=== PATIENT | female | born 1985 | race Caucasian/White ===

== ENCOUNTER 2016-07-08 16:35 | Emergency (ER) | payer SELFPAY ==
[~2016-07-08] VITALS: Ht 157.5 cm; Wt 117.2 kg
[~2016-07-08 16:35] MED LIST: ALBU8.5H INH; AZIT500T2 PO; CIPR-212 PO; OMEP20CA10 PO; TRAM50TA53 PO
[2016-07-08 16:36] VITALS: Ht 157.5 cm; Wt 117.2 kg
--- OUTSIDE RECORDS SUMMARY | 2016-07-08 16:45 | XMS REPORT ---
Author Author GENERATED, SYSTEM Organization Unknown Address Unknown Phone Unavailable Care Team Providers Care Director Of Donor Relations Name Role Phone UNASSIGNED DOCTOR , DOCTOR PP [phone] Reason For Visit Chief Complaint ABDOMINAL PAIN Social History Functional Status Vital Signs Results Chemistry from 08/15/2015 2:21 PMSODIUM 140 MMOL/L (136-145 MMOL/L) POTASSIUM 4.2 MMOL/L (3.5-5.1 MMOL/L) CHLORIDE 103 MMOL/L (98-107 MMOL/L) TCO2 30.6 MMOL/L (21.0-32.0 MMOL/L) *ANION GAP 6.4 MMOL/L L (8.0-16.0 MMOL/L) BUN 15 MG/DL (7-18 MG/DL) CREATININE 0.91 MG/DL (0.55-1.02 MG/DL) *BUN/CREATININE RATIO 16.5 (9.1-17.0 ) GLUCOSE 90 MG/DL (65-99 MG/DL) *GFR EST NON AFR FAROESE 85 ML/MIN *GFRA EST AFR AMER >90 ML/MIN CALCIUM 8.9 MG/DL (8.5-10.1 MG/DL) BILIRUBIN TOTAL 0.60 MG/DL (0.20-1.00 MG/DL) TOTAL PROTEIN 7.8 GM/DL (6.4-8.2 GM/DL) ALBUMIN 3.5 GM/DL (3.4-5.0 GM/DL) *GLOBULIN 4.3 GM/DL H (2.3-3.5 GM/DL) *A/G RATIO 0.8 MG/DL L (1.5-2.2 MG/DL) ALK PHOS 54 U/L (46-116 U/L) ALT (SGPT) 24 U/L (16-63 U/L) AST (SGOT) 16 U/L (15-37 U/L) LIPASE 106 U/L (73-393 U/L) TEST NEGATIVE (NEGATIVE ) Hematology from 08/15/2015 2:21 PMWBC 12.0 X10e3/UL H (3.6-11.2 X10e3/UL) RBC 4.48 X10e6/UL (3.63-4.92 X10e6/UL) HEMOGLOBIN 13.2 G/DL (11.0-14.3 G/DL) HEMATOCRIT 39.9 % (31.2-41.9 %) *MCV 89.2 FL (79.0-98.0 FL) *MCH 29.4 PG (27.0-33.0 PG) *MCHC 33.0 G/DL (32.0-36.0 G/DL) *RDW 14.2 % (12.3-17.0 %) *RDWSD 44.6 (37.1-47.8 ) PLATELET 273 X10e3/UL (159-386 X10e3/UL) *MPV 8.5 FL (7.4-10.4 FL) AUTOMATED DIFF PERFORMED SEGS 63.9 % *LYMPHOCYTES 30.1 % *MONOCYTES 4.8 % *EOSINOPHILS 0.6 % *BASOPHILS 0.6 % *ABSOLUTE NEUTROPHILS 7.70 X10e3/UL (1.80-7.80 X10e3/UL) *ABSOLUTE LYMPHOCYTES 3.60 X10e3/UL H (1.00-3.00 X10e3/UL) *ABSOLUTE MONOCYTES 0.60 X10e3/UL (0.30-1.00 X10e3/UL) *ABSOLUTE EOSINOPHILS 0.10 X10e3/UL (0.00-0.50 X10e3/UL) *ABSOLUTE BASOPHILS 0.10 X10e3/UL (0.00-0.20 X10e3/UL) Urinalysis from 08/15/2015 2:25 PM*URINE COLOR YELLOW (STRAW/YELL/DK YELL ) *URINE APPEARANCE CLOUDY A (CLEAR ) URINE PH 8.0 (5.0-8.0 ) URINE SPECIFIC GRAVITY 1.015 (<=1.005->=1.030 ) *URINE GLUCOSE NEGATIVE MG/DL (NEGATIVE MG/DL) *URINE BILIRUBIN NEGATIVE (NEGATIVE ) *URINE KETONES NEGATIVE MG/DL (NEGATIVE MG/DL) *URINE BLOOD MODERATE A (NEGATIVE ) *URINE PROTEIN NEGATIVE MG/DL (NEGATIVE MG/DL) *URINE UROBILINOGEN 0.2 EU/DL (0.2-1.0 EU/DL) *URINE NITRITES NEGATIVE (NEGATIVE ) *URINE LEUKOCYTES NEGATIVE (NEGATIVE ) *MICROSCOPIC EXAM PERFORMED PERFORMED *WBC URINE 0-1 /HPF (0-5 /HPF) *RBC URINE 5-10 /HPF A (0-1 /HPF) *SQUAMOUS EP. CELLS MANY /LPF A (NEG-FEW /LPF) *MUCOUS THREADS FEW /LPF A (NEGATIVE /LPF) *BACTERIA FEW /HPF A (NEGATIVE /HPF) Problems Encounter Diagnosis No relevant problems exist. Encounters Encounter Diagnosis No relevant problems exist. Plan of Care Procedures * Completed Procedure Code: 00.00 Procedure Name: not valued, on 08/06/2014 12: 00 AM Immunizations No immunizations administered or ordered. Hospital Course Hospital Discharge Instructions Allergies, Adverse Reactions, Alerts * Latex Allergy has not been assessed. * IV Contrast Allergy has not been assessed. Medication Medication reconciliation has not been performed.
--- OUTSIDE RECORDS SUMMARY | 2016-07-08 16:45 | XMS REPORT | Continuity of Care Document ---
Author Author [facility] Organization [facility] Address Unknown Phone Unavailable Support Name Relationship Address Phone FREDDIE BATRES Veronica DO Caregiver [address] [place] [address] Unavailable KIMBERLY SANCHEZ Next Of Kin [address] [place] [address] Insurance Providers Guarantor Evelyn Milan Address [address] [place] [address] Email LEFT W/O FINISHING REF 15 Payer Self Pay Subscriber's Name Berna Milana Nacho Relationship 18 Self Advance Directives Directive Response Recorded Date/Time Advanced Directives Type None 06/26/16 5:14pm Chief Complaint and Reason for Visit Chief Complaint Headache Reason for Visit Contusion of face Problems Active Problems Medical Problem Onset Date Status Knee contusion Unknown Acute Knee sprain Unknown Acute Past Problems Medical Problem Onset Date Abdominal pain Unknown Contusion of abdominal wall, initial encounter Unknown Contusion of face Unknown Drug-seeking behavior Unknown Knee sprain Unknown Left foot pain Unknown Medications Current Home Medications Medication Dose Units Route Directions Days Qty Instructions Start Date Albuterol Sulfate (Proair Hfa 90 Mcg/Actuation) 8.5 Gm Hfa.aer.ad 1 Puff Inhalation Every 4 Hours as needed for Shortness Of Air 06/26/16 Azithromycin (Zithromax Tri-Seamus) 500 Mg Tablet 1 Tab Oral Daily 3 Days 06/26/16 Ciprofloxacin Hcl (Cipro) 500 Mg Tablet 500 Mg Oral Every 12 Hours 06/26/16 Omeprazole 20 Mg Capsule.dr 20 Mg Oral Before Breakfast 06/26/16 Tramadol Hcl (Ultram) 50 Mg Tablet 50 Mg Oral Every 4 Hours for Pain 3 Days 18 Tablet Take 1 tablet, by mouth, every 4 hours. 06/26/16 Past Home Medications Medication Directions Ordered Status Ibuprofen 800 Mg Tablet, 800 Mg Oral Every 8 Hours as needed for Pain Discontinued Social History Social History Problem Response Recorded Date/Time Onset Date Status Hx Substance Use No 06/26/2016 5:24pm Not Applicable Not Applicable Hx Alcohol Use No 06/26/2016 5:24pm Not Applicable Not Applicable Tobacco Usage smoke 11/02/2015 1:40am Not Applicable Not Applicable Query Response Start Date Stop Date Smoking Status Never smoker Hospital Discharge Instructions No hospital discharge instructions. Plan of Care Discharge Date 06/26/16 7:19pm Disposition 01 DISCHARGED HOME, SELF-CARE Condition at Discharge Improved Instructions/Education Provided Contusion in Adults (ED) Prescriptions See Medication Section Referrals [facility] Order Date: 2 Days Care Plan and Goals Physician Care Plan Problem: Contusion, CHI Goal: Follow up with primary care provider Instructions: Take medications and follow care plan as discussed/written Functional Status No functional status results. Allergies, Adverse Reactions, Alerts Allergen Type Severity Reaction Status Last Updated Erythromycin base Allergy Unknown VOMITING Active 05/31/16 Ketorolac Adverse Reaction Unknown RASH Active 05/31/16 Immunizations Query Response on File Recorded Date/Time Influenza Vaccine Hx NONE 06/26/16 5:24pm Tdap Vaccine Hx UNKNOWN - SKIN INTACT 05/31/16 10:39am Vital Signs Acute Vital Signs Vital Response Date/Time Temperature (Fahrenheit) 98.5 deg F (96.8 - 99.1) 06/26/2016 7:19pm Temperature (Calculated Celsius) 36.86125 degrees C (36.0 - 37.3) 06/26/2016 7:19pm Pulse Rate (adult) 84 bpm (60 - 100) 06/26/2016 7:19pm Respiratory Rate 16 breaths/min (10 - 20) 06/26/2016 7:19pm O2 Sat by Pulse Oximetry 98 % (90 - 100) 06/26/2016 7:19pm Oxygen Delivery Method Room Air 05/31/2016 12:32pm Blood Pressure 130/74 mm Hg 06/26/2016 7:19pm Height (Feet) 5 feet 06/26/2016 5:17pm Height (Inches) 2.00 inches 06/26/2016 5:17pm Weight (Kilograms) 117.000 kg 06/26/2016 5:17pm Body Mass Index (BMI) 47.0 06/26/2016 5:17pm Results Laboratory Results Test Name Result Units Flags Reference Collection Date/Time Result Date/ Time Comments Urine Mucus PRESENT 04/06/2016 10:49pm 04/06/2016 11:08pm White Blood Count 7.8 T/MM3 4.5-11.0 04/11/2016 2:44pm 04/11/2016 2: 49pm Red Blood Count 3.97 M/MM3 L 4.00-5.20 04/11/2016 2:44pm 04/11/2016 2: 49pm Hemoglobin 12.2 GM/DL 12-16 04/11/2016 2:44pm 04/11/2016 2:49pm Hematocrit 36.5 % 36-46 04/11/2016 2:44pm 04/11/2016 2:49pm Mean Corpuscular Volume 91.9 UM3 80-100 04/11/2016 2:44pm 04/11/2016 2: 49pm Mean Corpuscular Hemoglobin 30.7 UUG 26-34 04/11/2016 2:44pm 2015 2:49pm Mean Corpuscular Hemoglobin Concent 33.4 GM/DL 31-37 04/11/2016 2:44pm 04/11/2016 2:49pm RDW Standard Deviation 44.5 FL 36.9-50.2 04/11/2016 2:44pm 04/11/2016 2 :49pm Platelet Count 263 T/MM3 130-400 04/11/2016 2:44pm 04/11/2016 2:49pm Mean Platelet Volume 10.1 UM3 9.4-12.4 04/11/2016 2:44pm 04/11/2016 2: 49pm Neutrophils (%) (Auto) 58.6 % 33-66 04/11/2016 2:44pm 04/11/2016 2: 49pm Lymphocytes (%) (Auto) 34.6 % 23-45 04/11/2016 2:44pm 04/11/2016 2: 49pm Monocytes (%) (Auto) 5.2 % 0-9.0 04/11/2016 2:44pm 04/11/2016 2:49pm Eosinophils (%) (Auto) 0.9 % 0-4 04/11/2016 2:44pm 04/11/2016 2:49pm Basophils (%) (Auto) 0.3 % 0-2 04/11/2016 2:44pm 04/11/2016 2:49pm Immature Granulocyte % (Auto) 0.4 % 0.0-0.5 04/11/2016 2:44pm 2015 2:49pm Absolute Neutrophils (auto) 4.6 T/MM3 1.8-7.7 04/11/2016 2:44pm 2015 2:49pm Absolute Lymphocytes (auto) 2.7 T/MM3 1-4.8 04/11/2016 2:44pm 2015 2:49pm Absolute Monocytes (auto) 0.4 T/MM3 0-0.8 04/11/2016 2:44pm 04/11/2016 2:49pm Absolute Eosinophils (auto) 0.1 T/MM3 0-0.5 04/11/2016 2:44pm 2015 2:49pm Absolute Basophils (auto) 0.0 T/MM3 0-0.2 04/11/2016 2:44pm 04/11/2016 2:49pm Absolute Immature Granulocyte (auto 0.03 T/MM3 0.00-0.03 04/11/2016 2: 44pm 04/11/2016 2:49pm Icterus Index < 2 0-7 04/11/2016 2:44pm 04/11/2016 3:01pm Chemistry Specimen Hemolysis < 15 0-25 04/11/2016 2:44pm 04/11/2016 3 :01pm 0-25: Specimen Exhibited No Hemolysis. Turbidity < 20 0-20 04/11/2016 2:44pm 04/11/2016 3:01pm Sodium Level 143 MEQ/L 134-144 04/11/2016 2:44pm 04/11/2016 3:01pm Potassium Level 3.8 MEQ/L 3.6-5 04/11/2016 2:44pm 04/11/2016 3:01pm Chloride Level 102 MEQ/L 98-107 04/11/2016 2:44pm 04/11/2016 3:01pm Carbon Dioxide Level 29 MEQ/L 22-30 04/11/2016 2:44pm 04/11/2016 3: 01pm Anion Gap 12 MEQ/L 5-15 04/11/2016 2:44pm 04/11/2016 3:01pm Blood Urea Nitrogen 13.0 MG/DL 7-17 04/11/2016 2:44pm 04/11/2016 3: 01pm Creatinine 0.9 MG/DL 0.7-1.2 04/11/2016 2:44pm 04/11/2016 3:01pm BUN/Creatinine Ratio 14 RATIO 6-26 04/11/2016 2:44pm 04/11/2016 3:01pm Glomerular Filtration Rate Calc 74 04/11/2016 2:44pm 04/11/2016 3: 01pm Glucose Level 93 MG/DL 65-110 04/11/2016 2:44pm 04/11/2016 3:01pm Calculated Osmolality 275 MOSM/KG 261-280 04/11/2016 2:44pm 04/11/2016 3:01pm Calcium Level 9.0 MG/DL 8.4-10.2 04/11/2016 2:44pm 04/11/2016 3:01pm Urine Collection Type CLEANCATCH-MIDSTREAM 04/11/2016 2:51pm 2015 2:58pm Urine Color YELLOW YELLOW 04/11/2016 2:51pm 04/11/2016 2:58pm Urine Turbidity CLOUDY CLEAR 04/11/2016 2:51pm 04/11/2016 2:58pm Urine Specific Zoe 1.015 1.015-1.025 04/11/2016 2:51pm 2015 2:58pm Urine pH 8.5 H 5.0-8.0 04/11/2016 2:51pm 04/11/2016 2:58pm Urine Leukocyte Esterase NEGATIVE NEGATIVE 04/11/2016 2:51pm 2015 2:58pm Urine Nitrite NEGATIVE NEGATIVE 04/11/2016 2:51pm 04/11/2016 2:58pm Urine Protein NEGATIVE NEGATIVE 04/11/2016 2:51pm 04/11/2016 2:58pm Urine Glucose (UA) NEGATIVE NEGATIVE 04/11/2016 2:51pm 04/11/2016 2: 58pm Urine Ketones NEGATIVE NEGATIVE 04/11/2016 2:51pm 04/11/2016 2:58pm Urine Urobilinogen 0.2 EU/DL NORMAL 04/11/2016 2:51pm 04/11/2016 2: 58pm Urine Bilirubin NEGATIVE NEGATIVE 04/11/2016 2:51pm 04/11/2016 2: 58pm Urine Blood 2+ A NEGATIVE 04/11/2016 2:51pm 04/11/2016 2:58pm Urine WBC 0-1 /HPF 0-5 04/11/2016 2:51pm 04/11/2016 3:41pm Urine RBC 0-1 /HPF 0-3 04/11/2016 2:51pm 04/11/2016 3:41pm Urine Squamous Epithelial Cells 20-50 04/11/2016 2:51pm 04/11/2016 3:41pm Urine Bacteria 2+ H NEGATIVE 04/11/2016 2:51pm 04/11/2016 3:41pm Urine Yeast 1+ H NEGATIVE 04/11/2016 2:51pm 04/11/2016 3:41pm Urine Culture Indicated CULT NOT INDICATED 04/11/2016 2:51pm 2015 3:41pm Procedures Procedure Status Date Provider(s) Ther/proph/diag inj iv push Completed 04/11/16 Encounters Encounter Location Arrival/Admit Date Discharge/Depart Date Attending Provider Departed Emergency Room [facility] 06/26/16 5:11pm 06/26/16 7: 19pm FREDDIE BATRES DO Departed Emergency Room [facility] 05/31/16 10:31am 05/31/16 12: 47pm ROSA SUTHERLAND MD Departed Emergency Room [facility] 04/13/16 9:42pm 04/13/16 10: 17pm JOSE VALERIO MD Departed Emergency Room [facility] 04/11/16 2:04pm 04/11/16 4: 40pm JIMMY CAREY MD Departed Emergency Room [facility] 04/06/16 9:08pm 04/06/16 11: 40pm STEWART CARTER MD Recent Diagnosis
--- OUTSIDE RECORDS SUMMARY | 2016-07-08 16:45 | XMS REPORT ---
Author Author GENERATED, SYSTEM Organization Unknown Address Unknown Phone Unavailable Care Team Providers Care Yoga Instructor Name Role Phone UNASSIGNED DOCTOR , DOCTOR PP [phone] Reason For Visit Chief Complaint CHRONIC MIGRAINE Social History Functional Status Vital Signs Results Problems Encounter Diagnosis No relevant problems exist. Encounters Encounter Diagnosis No relevant problems exist. Plan of Care Procedures * Completed Procedure Code: 00.00 Procedure Name: not valued, on 08/06/2014 12: 00 AM Immunizations No immunizations administered or ordered. Hospital Course Hospital Discharge Instructions Allergies, Adverse Reactions, Alerts * Eryc causes unspecified. * tramadol causes unspecified. * Toradol causes unspecified. * Latex Allergy has not been assessed. * IV Contrast Allergy has not been assessed. Medication Medication reconciliation has not been performed.
--- OUTSIDE RECORDS SUMMARY | 2016-07-08 16:46 | XMS REPORT ---
Author Author GENERATED, SYSTEM Organization Unknown Address Unknown Phone Unavailable Care Team Providers Care Solar Energy Engineer Name Role Phone UNASSIGNED DOCTOR , DOCTOR PP [phone] Reason For Visit Chief Complaint VOMITING BLOOD Social History Functional Status Vital Signs Results Chemistry from 08/22/2015 11:12 AMSODIUM 139 MMOL/L (136-145 MMOL/L) POTASSIUM 3.9 MMOL/L (3.5-5.1 MMOL/L) CHLORIDE 105 MMOL/L (98-107 MMOL/L) TCO2 30.5 MMOL/L (21.0-32.0 MMOL/L) *ANION GAP 3.5 MMOL/L L (8.0-16.0 MMOL/L) BUN 12 MG/DL (7-18 MG/DL) CREATININE 1.11 MG/DL H (0.55-1.02 MG/DL) *BUN/CREATININE RATIO 10.8 (9.1-17.0 ) GLUCOSE 97 MG/DL (65-99 MG/DL) *GFR EST NON AFR AFGHAN 67 ML/MIN *GFRA EST AFR AMER 78 ML/MIN CALCIUM 9.1 MG/DL (8.5-10.1 MG/DL) BILIRUBIN TOTAL 0.40 MG/DL (0.20-1.00 MG/DL) TOTAL PROTEIN 7.0 GM/DL (6.4-8.2 GM/DL) ALBUMIN 3.2 GM/DL L (3.4-5.0 GM/DL) *GLOBULIN 3.8 GM/DL H (2.3-3.5 GM/DL) *A/G RATIO 0.8 MG/DL L (1.5-2.2 MG/DL) ALK PHOS 46 U/L (46-116 U/L) ALT (SGPT) 21 U/L (16-63 U/L) AST (SGOT) 13 U/L L (15-37 U/L) Hematology from 08/22/2015 11:12 AMWBC 8.2 X10e3/UL (3.6-11.2 X10e3/UL) RBC 4.29 X10e6/UL (3.63-4.92 X10e6/UL) HEMOGLOBIN 12.8 G/DL (11.0-14.3 G/DL) HEMATOCRIT 38.4 % (31.2-41.9 %) *MCV 89.5 FL (79.0-98.0 FL) *MCH 29.7 PG (27.0-33.0 PG) *MCHC 33.2 G/DL (32.0-36.0 G/DL) *RDW 14.1 % (12.3-17.0 %) *RDWSD 44.6 (37.1-47.8 ) PLATELET 240 X10e3/UL (159-386 X10e3/UL) *MPV 9.1 FL (7.4-10.4 FL) AUTOMATED DIFF PERFORMED SEGS 58.2 % *LYMPHOCYTES 34.6 % *MONOCYTES 5.4 % *EOSINOPHILS 1.0 % *BASOPHILS 0.8 % *ABSOLUTE NEUTROPHILS 4.80 X10e3/UL (1.80-7.80 X10e3/UL) *ABSOLUTE LYMPHOCYTES 2.90 X10e3/UL (1.00-3.00 X10e3/UL) *ABSOLUTE MONOCYTES 0.40 X10e3/UL (0.30-1.00 X10e3/UL) *ABSOLUTE EOSINOPHILS 0.10 X10e3/UL (0.00-0.50 X10e3/UL) *ABSOLUTE BASOPHILS 0.10 X10e3/UL (0.00-0.20 X10e3/UL) Urinalysis from 08/22/2015 10:30 AM*URINE COLOR YELLOW (STRAW/YELL/DK YELL ) *URINE APPEARANCE SL CLOUDY A (CLEAR ) URINE PH 7.5 (5.0-8.0 ) URINE SPECIFIC GRAVITY 1.015 (<=1.005->=1.030 ) *URINE GLUCOSE NEGATIVE MG/DL (NEGATIVE MG/DL) *URINE BILIRUBIN NEGATIVE (NEGATIVE ) *URINE KETONES NEGATIVE MG/DL (NEGATIVE MG/DL) *URINE BLOOD MODERATE A (NEGATIVE ) *URINE PROTEIN NEGATIVE MG/DL (NEGATIVE MG/DL) *URINE UROBILINOGEN 0.2 EU/DL (0.2-1.0 EU/DL) *URINE NITRITES NEGATIVE (NEGATIVE ) *URINE LEUKOCYTES NEGATIVE (NEGATIVE ) UR NEGATIVE (NEGATIVE ) *MICROSCOPIC EXAM PERFORMED PERFORMED *WBC URINE 1-5 /HPF (0-5 /HPF) *RBC URINE 1-5 /HPF A (0-1 /HPF) *SQUAMOUS EP. CELLS MODERATE /LPF A (NEG-FEW /LPF) *BACTERIA FEW /HPF A (NEGATIVE /HPF) *SPERM FEW /HPF A (NEGATIVE /HPF) Serology from 08/22/2015 11:12 AMHELICOBACTER ANTIBODY Negative (NEGATIVE ) CT Scan from 08/22/2015 12:41 PMCT ABD/PELVIS W/CONTRAST History: Hematemesis Technique: Post contrast images were performed after the administration of 95 milliliters of Isovue intravenous contrast. Priors: CT of abdomen pelvis dated 08/15/2015 Findings: Abdomen Lung bases: Clear Liver: Normal density. No definable mass. Spleen: Normal. Pancreas: No discrete mass or inflammatory process. Gallbladder and biliary tract: The gallbladder is surgically absent. Adrenal glands: Normal. Kidneys: Normal enhancement. No masses. No radiodense stones or hydronephrosis. Urinary Bladder: Normal. Aorta: Normal in caliber. No periaortic lymphadenopathy. Bowel and Mesentery: There is moderate retained fecal material again noted throughout the colon. There is no evidence of bowel obstruction or significant mural thickening of the bowel. No findings of appendicitis. Ascites: None. There is an unchanged small fat containing umbilical hernia Pelvis Lymphadenopathy: None. Reproductive: Unremarkable. Osseous Structures: No suspicious findings. Impression: No acute abnormality. Constipation. Unchanged fat containing umbilical hernia. Electronically signed by: Guerline Up MD Dictated: 08/22/2015 13:27 Problems Encounter Diagnosis No relevant problems exist. [...]
--- OUTSIDE RECORDS SUMMARY | 2016-07-08 16:46 | XMS REPORT ---
Author Author GENERATED, SYSTEM Organization Unknown Address Unknown Phone Unavailable Care Team Providers Care Hat Presser Name Role Phone UNASSIGNED DOCTOR , DOCTOR PP [phone] Reason For Visit Chief Complaint GASTROENTERITIS Social History Functional Status Vital Signs Results [...]
--- OUTSIDE RECORDS SUMMARY | 2016-07-08 16:46 | XMS REPORT ---
Author Author GENERATED, SYSTEM Organization Unknown Address Unknown Phone Unavailable Care Team Providers Care Box Inspector Name Role Phone UNASSIGNED DOCTOR , DOCTOR PP [phone] Reason For Visit Chief Complaint MIGRAINE Social History Functional Status Vital Signs [...]
--- OUTSIDE RECORDS SUMMARY | 2016-07-08 16:46 | XMS REPORT ---
Author Author GENERATED, SYSTEM Organization Unknown Address Unknown Phone Unavailable Care Team Providers Care Environmental Compliance Inspector Name Role Phone UNASSIGNED DOCTOR , DOCTOR PP [phone] Reason For Visit Chief Complaint STOMACH PAIN, VOMITING BLOOD Social History Functional Status Vital [...]
--- OUTSIDE RECORDS SUMMARY | 2016-07-08 16:46 | XMS REPORT ---
Author Author GENERATED, SYSTEM Organization Unknown Address Unknown Phone Unavailable Care Team Providers Care Newspaper Journalist Name Role Phone UNASSIGNED DOCTOR , DOCTOR PP [phone] Reason For Visit Chief Complaint ABDOMINAL PAIN, UNSPECIF,STOMACH CRAMPS,BLOOD IN STOOL Social History Functional Status Vital Signs Results Chemistry from 08/14/2014 3:28 PMSODIUM 140 MMOL/L (136-145 MMOL/L) POTASSIUM 3.8 MMOL/L (3.5-5.1 MMOL/L) CHLORIDE 104 MMOL/L (98-107 MMOL/L) TCO2 29.7 MMOL/L (21.0-32.0 MMOL/L) ANION GAP 6.3 MMOL/L L (8.0-16.0 MMOL/L) BUN 11 MG/DL (7-18 MG/DL) CREATININE 0.87 MG/DL H (0.43-0.83 MG/DL) BUN/CREATININE RATIO 12.6 (9.1-17.0 ) GLUCOSE 95 MG/DL (65-99 MG/DL) GFR EST NON AFR MONGOLIAN >90 ML/MIN GFRA EST AFR AMER >90 ML/MIN CALCIUM 9.3 MG/DL (8.5-10.1 MG/DL) BILIRUBIN TOTAL 0.49 MG/DL (0.20-1.00 MG/DL) TOTAL PROTEIN 7.8 GM/DL (6.4-8.2 GM/DL) ALBUMIN 3.8 GM/DL (3.4-5.0 GM/DL) GLOBULIN 4.0 GM/DL H (2.3-3.5 GM/DL) A/G RATIO 1.0 MG/DL L (1.5-2.2 MG/DL) ALK PHOS 53 U/L (46-116 U/L) ALT (SGPT) 17 U/L (16-63 U/L) AST (SGOT) 11 U/L L (15-37 U/L) LIPASE 123 U/L (73-393 U/L) Hematology from 08/14/2014 3:28 PMWBC 10.7 X10e3/UL (3.6-11.2 X10e3/UL) RBC 4.35 X10e6/UL (3.63-4.92 X10e6/UL) HEMOGLOBIN 13.5 G/DL (11.0-14.3 G/DL) HEMATOCRIT 39.7 % (31.2-41.9 %) MCV 91.1 FL (79.0-98.0 FL) MCH 31.0 PG (27.0-33.0 PG) MCHC 34.0 G/DL (32.0-36.0 G/DL) RDW 14.2 % (12.3-17.0 %) RDWSD 45.5 (37.1-47.8 ) PLATELET 241 X10e3/UL (159-386 X10e3/UL) MPV 9.3 FL (7.4-10.4 FL) AUTOMATED DIFF PERFORMED SEGS 60.3 % LYMPHOCYTES 32.8 % MONOCYTES 4.8 % EOSINOPHILS 1.3 % BASOPHILS 0.8 % ABSOLUTE NEUTROPHILS 6.50 X10e3/UL (1.80-7.80 X10e3/UL) ABSOLUTE LYMPHOCYTES 3.50 X10e3/UL H (1.00-3.00 X10e3/UL) ABSOLUTE MONOCYTES 0.50 X10e3/UL (0.30-1.00 X10e3/UL) ABSOLUTE EOSINOPHILS 0.10 X10e3/UL (0.00-0.50 X10e3/UL) ABSOLUTE BASOPHILS 0.10 X10e3/UL (0.00-0.20 X10e3/UL) Urinalysis from 08/14/2014 3:15 PMURINE COLOR YELLOW (STRAW/YELL/DK YELL ) URINE APPEARANCE CLEAR (CLEAR ) URINE PH 5.5 (5.0-8.0 ) URINE SPECIFIC GRAVITY >1.030 (<=1.005->=1.030 ) URINE GLUCOSE NEGATIVE MG/DL (NEGATIVE MG/DL) URINE BILIRUBIN NEGATIVE (NEGATIVE ) URINE KETONES NEGATIVE MG/DL (NEGATIVE MG/DL) URINE BLOOD LARGE A (NEGATIVE ) URINE PROTEIN NEGATIVE MG/DL (NEGATIVE MG/DL) URINE UROBILINOGEN 0.2 EU/DL (0.2-1.0 EU/DL) URINE NITRITES NEGATIVE (NEGATIVE ) *URINE LEUKOCYTES NEGATIVE (NEGATIVE ) UR NEGATIVE (NEGATIVE ) MICROSCOPIC EXAM PERFORMED PERFORMED WBC 0-1 /HPF (0-5 /HPF) RBC 1-5 /HPF A (0-1 /HPF) SQUAMOUS EP. CELLS MODERATE /LPF A (NEG-FEW /LPF) MUCOUS THREADS MANY /LPF A (NEGATIVE /LPF) YEAST MODERATE /HPF A (NEGATIVE /HPF) Problems Encounter Diagnosis [...]
--- OUTSIDE RECORDS SUMMARY | 2016-07-08 16:47 | XMS REPORT ---
Author Author GENERATED, SYSTEM Organization Unknown Address Unknown Phone Unavailable Care Team Providers Care Diabetes Clinical Manager Name Role Phone UNASSIGNED DOCTOR , DOCTOR PP [phone] Reason For Visit Chief Complaint RIB PAIN Social History Functional Status Vital Signs Results DX Radiology from 02/24/2016 1:56 PMCHEST (PA) WITH RIGHT RIBS History: Right rib pain Technique: One VIEW CHEST with three-view right ribs Priors: 09/06/2015 Findings: No acute infiltrate, pneumothorax or pleural effusions are identified. The heart size is normal. No rib fractures are identified. Impression: No evidence acute cardiopulmonary process or right rib fracture. Electronically signed by: Stephan Levy MD Dictated: 02/24/2016 14:34 Problems Encounter Diagnosis No relevant problems exist. [...]
--- OUTSIDE RECORDS SUMMARY | 2016-07-08 16:47 | XMS REPORT ---
Author Author GENERATED, SYSTEM Organization Unknown Address Unknown Phone Unavailable Care Team Providers Care Catering Staff Member Name Role Phone UNASSIGNED DOCTOR , DOCTOR PP [phone] Reason For Visit Chief Complaint ABDOMINAL PAIN [...]
--- OUTSIDE RECORDS SUMMARY | 2016-07-08 16:48 | XMS REPORT | Continuity of Care Document ---
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 0.1-0.5 EOSINOPHIL % 1 % 2-4 GRANULOCYTE # 5.4 k/cumm 2.0-9.0 GRANULOCYTE % 57 % 50-75 LYMPHOCYTE # 3.4 k/cumm 1.0-4.0 LYMPHOCYTE % 36 % 20-30 MEAN CELL HGB 30.0 pg 27.0-33.0 MEAN CELL HGB CONCENTRATION 32.9 g/dL 32.0-37.0 MEAN CELL VOLUME 91.3 fl 80.0-100.0 MONOCYTE # 0.4 k/cumm 0.1-1.0 MONOCYTE % 4 % 4-6 RED BLOOD CELL 4.13 m/cumm 4.00-6.00 RED CELL DISTRIBUTION WIDTH 13.3 % 11.0- 15.6 WHITE BLOOD CELL 9.5 k/cumm 5.0-10.0 HEMOGLOBIN 12.4 gm/dL 12.0-16.0 HEMATOCRIT 37.7 % 37.0-47.0 PLATELET COUNT 285 k/cumm 150-400 UR TEST - 06/11/16 14:03 UR TEST NEGATIVE NEGATIVE METABOLIC PANEL, COMPREHN - 06/11/16 14:03 POTASSIUM 3.5 mmol/L 3.5-5.3 EST GFR (MDRD) > 60 mL/min > 59 ANION GAP 9 mmol/L 5-15 EST CrCl (CG) > 60 mL/min > 59 GLUCOSE 123 mg/dL 70-99 CALCIUM 8.4 mg/dL 8.5-10.1 BLOOD UREA NITROGEN 10 mg/dL 7-20 CREATININE 1.0 mg/dL 0.6-1.0 SODIUM 141 mmol/L 135-148 CHLORIDE 103 mmol/L 98-110 AST/SGOT 14 Units/L 10-37 ALT/SGPT 22 Units/L < 66 CARBON DIOXIDE 29 mmol/L 21-32 TOTAL PROTEIN 7.3 gm/dL 6.4-8.2 ALBUMIN 3.4 gm/dL 3.4-5.0 BILI TOTAL 0.4 mg/dL 0.0-1.0 ALKALINE PHOSPHATASE TOTAL 58 IU/L 45- 117 LIPASE - 06/11/16 14:03 LIPASE 97 Units/L 73-393 URINALYSIS, ROUTINE - 06/11/16 14:22 UA LEUKOCYTE ESTERASE DIPSTICK NEGATIVE NEGATIVE UA NITRITE DIPSTICK NEGATIVE NEGATIVE UA PROTEIN DIPSTICK NEGATIVE NEGATIVE UA GLUCOSE DIPSTICK NEGATIVE NEGATIVE UA KETONE DIPSTICK NEGATIVE NEGATIVE UA UROBILINOGEN DIPSTICK NORMAL NORMAL UA BILIRUBIN DIPSTICK NEGATIVE NEGATIVE UA BLOOD DIPSTICK 3+ NEGATIVE UA SPECIFIC GRAVITY 1.010 1.015-1.025 UR PH 6.0 5.0-7.0 UA MICROSCOPIC - 06/11/16 14:22 UA BACTERIA 2+ NEGATIVE UA EPITHELIAL CELLS 4+ epi/hpf 0 - 1+ UA RBC 10-20 rbc/hpf 0 - 3 UA VOLUME FOR EXAM 12.0 mL (12mL STD) UA WBC 2-5 wbc/hpf 0 - 5 URINALYSIS, ROUTINE - 06/14/16 14:25 UA LEUKOCYTE ESTERASE DIPSTICK NEGATIVE NEGATIVE UA NITRITE DIPSTICK NEGATIVE NEGATIVE UA PROTEIN DIPSTICK 1+ NEGATIVE UA GLUCOSE DIPSTICK NEGATIVE NEGATIVE UA KETONE DIPSTICK NEGATIVE NEGATIVE UA UROBILINOGEN DIPSTICK NORMAL NORMAL UA BILIRUBIN DIPSTICK NEGATIVE NEGATIVE UA BLOOD DIPSTICK 3+ NEGATIVE UA SPECIFIC GRAVITY 1.020 1.015-1.025 UR PH 8.5 5.0-7.0 UA MICROSCOPIC - 06/14/16 14:25 UA AMORPHOUS SEDIMENT 4+ UA BACTERIA 2+ NEGATIVE UA EPITHELIAL CELLS 3+ epi/hpf 0 - 1+ UA RBC 50-100 rbc/hpf 0 - 3 UA VOLUME FOR EXAM 12.0 mL (12mL STD) UA WBC 2-5 wbc/hpf 0 - 5 CHEM/HEM PROFILE-BEDSIDE - 06/14/16 14:42 POTASSIUM 3.8 mmol/L 3.5-5.3 METHOD Bedside ANION GAP 17 mmol/L 10-20 METHOD Bedside GLUCOSE 90 mg/dL 70-99 BLOOD UREA NITROGEN 11 mg/dL 7-20 CREATININE 0.8 mg/dL 0.6-1.0 HEMOGLOBIN 13.3 gm/dL 12.0-16.0 HEMATOCRIT 39.0 % 37.0-47.0 SODIUM 141 mmol/L 135-148 CHLORIDE 103 mmol/L 98-110 CARBON DIOXIDE 26 mmol/L 21-32 CALCIUM IONIZED 4.6 mg/dL 4.5-5.3 CBC WITH PLATELET AND DIFFERENTIAL - 06/22/16 12:05 SEGS 80.9 % NRG *BASOPHILS 0.7 % NRG *EOSINOPHILS 0.4 % NRG AUTOMATED DIFF PERFORMED NRG *LYMPHOCYTES 14.6 % NRG *MONOCYTES 3.4 % NRG *ABSOLUTE BASOPHILS 0.10 10*3/uL 0.00- 0.20 *ABSOLUTE EOSINOPHILS 0.00 10*3/uL 0.00- 0.50 *ABSOLUTE LYMPHOCYTES 1.60 10*3/uL 1.00- 3.00 *ABSOLUTE MONOCYTES 0.40 10*3/uL 0.30- 1.00 *ABSOLUTE NEUTROPHILS 9.00 10*3/uL 1.80- 7.80 MPV 8.2 fL 7.4-10.4 PLATELETS 286 10*3/uL 159-386 WBC 11.1 10*3/uL 3.6-11.2 RBC 4.45 3.63-4.92 HEMOGLOBIN 13.3 11.0-14.3 HEMATOCRIT 39.6 % 31.2-41.9 MCV 88.9 fL 79.0-98.0 MCH 29.8 pg 27.0-33.0 MCHC 33.5 32.0-36.0 RDW 13.9 % 12.3-17.0 RDWSD 43.8 37.1-47.8 COMPREHENSIVE METABOLIC PANEL - 06/22/16 12:05 BILIFUBIN TOTAL 0.70 0.20-1.00 TOTAL PROTEIN 7.9 6.4-8.2 ALBUMIN 3.7 3.4-5.0 *GLOBULIN 4.2 2.3-3.5 *A/G RATIO 0.9 1.5-2.2 ALK PHOS 63 U/L 46-116 ALT (SGPT) 35 U/L 16-63 AST (SGOT) 14 U/L 15-37 GFR ESTIMATION - 06/22/16 12:05 *GFR EST NON AFR JORDANIAN 64 mL/min NRG *GRFA EST AFR AMER 74 mL/min NRG LIPASE - 06/22/16 12:05 LIPASE 100 U/L 73-393 Encounters ACCT No. Visit Date/Time Discharge Status Pt. Type Provider Facility Loc./Unit Complaint [id number] 08/13/2013 21:11:00 2013 23:00:00 DIS Emergency Kellie LOMBARDO, [facility] [id number] 06/14/2013 21:19:00 2013 00:35:00 DIS Emergency Collin Bhatt DO [facility] [id number] 02/23/2013 05:47:00 2012 07:56:00 DIS Emergency Collin Bhatt DO [facility] [id number] 10/24/2012 12:57:00 2012 16:37:00 DIS Emergency Thomas LOMBARDO, Blair Martin [facility] [id number] 10/19/2012 15:39:00 2012 16:30:00 DIS Emergency Tab PACHECO MD, Te Andre [facility]
--- OUTSIDE RECORDS SUMMARY | 2016-07-08 16:49 | XMS REPORT ---
Author Author GENERATED, SYSTEM Organization Unknown Address Unknown Phone Unavailable Care Team Providers Care Corner Trimmer Operator Name Role Phone UNASSIGNED DOCTOR , DOCTOR PP [phone] Reason For Visit Chief Complaint INFLUENZA LIKE ILLNESS Social History Functional Status Vital Signs Results [...]
--- OUTSIDE RECORDS SUMMARY | 2016-07-08 16:49 | XMS REPORT | Referral Summary ---
Author Author [facility] Organization [facility] Address Unknown Phone Unavailable Care Team Providers Care Supervisor Finishing Name Role Phone No PCP, Pt States Primary Care Physician [phone] Encounter VC Date(s): 05/23/16 - 05/23/16 [facility] [address], [place] [address] Discharge Diagnosis: Sprain of left ankle Discharge Disposition: 01-Home or Self Care Attending Physician: Go Asher DO Admitting Physician: Go Asher DO Vital Signs Most recent to 1 oldest [Reference Range]: Temperature Oral 36.3 degC [35.8-37.3 degC] (05/23/16 7:51 PM) Peripheral Pulse 92 bpm Rate [60-100 bpm] (05/23/16 10:15 PM) Respiratory Rate 16 br/min [14-20 br/min] (05/23/16 10:15 PM) Blood Pressure 122/76 mmHg [90-140/60-90 mmHg] (05/23/16 10:15 PM) SpO2 98 % (05/23/16 10:15 PM) Problem List Condition Effective Dates Status Health Status Informant Hernia of abdominal Active patient cavity(Confirmed) Asthma(Confirmed) Active patient Crohn's Active patient colitis(Confirmed) Diverticulitis(Confi Active patient rmed) History of Active patient IBS(Confirmed) Heart Active patient murmur(Confirmed) Irritable bowel Active patient disease(Confirmed) Abdominal pain, Active patient recurrent(Confirmed) Allergies, Adverse Reactions, Alerts Substance Reaction Severity Status Benadryl Hives Mild Active erythromycin Vomiting - Minor Severe Active Toradol Vomiting Mild Active Medications Advil Oral, 0 Refill(s) Start Date: 01/27/16 Status: Ordered albuterol 90 mcg/inh inhalation powder 1 puffs, Inhalation, q4hr, as needed, 0 Refill(s), Indication: WHEEZING Start Date: 01/08/16 Status: Ordered Non-Formulary Med OTC ACID TAX FORM PREPARER, Oral, TO BRING INFO ON DOS, 0 Refill(s) Start Date: 01/08/16 Status: Ordered Tylenol Caplet 325 mg, Oral, q4hr, as needed for pain, TO BRING INFO ON DOS, 0 Refill(s) Start Date: 01/08/16 Status: Ordered Results Chemistry Most recent to 1 oldest [Reference Range]: U Beta hCG Ql Neg (05/23/16 9:50 PM) Immunizations No data available for this section Procedures Procedure Date Related Diagnosis Body Site Repair Hernia Umbilical1 01/10/16 Cholecystectomy Colonoscopy TMJ SURGERY 1auto-populated from documented surgical case Social History Social History Type Response Smoking Status Never smoker Assessment and Plan No data available for this section
--- OUTSIDE RECORDS SUMMARY | 2016-07-08 16:49 | XMS REPORT ---
Author Author GENERATED, SYSTEM Organization Unknown Address Unknown Phone Unavailable Care Team Providers Care Community Recreation Programmer Name Role Phone UNASSIGNED DOCTOR , DOCTOR PP [phone] Reason For Visit Chief Complaint CONGESTION, COUGH, DIARRHEA, NAUSEA Social History Functional Status Vital Signs Results Chemistry from 12/09/2014 12:00 PMSODIUM 142 MMOL/L (136-145 MMOL/L) POTASSIUM 3.6 MMOL/L (3.5-5.1 MMOL/L) CHLORIDE 106 MMOL/L (98-107 MMOL/L) TCO2 30.7 MMOL/L (21.0-32.0 MMOL/L) ANION GAP 5.3 MMOL/L L (8.0-16.0 MMOL/L) BUN 11 MG/DL (7-18 MG/DL) CREATININE 1.06 MG/DL H (0.55-1.02 MG/DL) BUN/CREATININE RATIO 10.4 (9.1-17.0 ) GLUCOSE 118 MG/DL H (65-99 MG/DL) GFR EST NON AFR BAHRAINI 71 ML/MIN GFRA EST AFR AMER 82 ML/MIN CALCIUM 9.1 MG/DL (8.5-10.1 MG/DL) BILIRUBIN TOTAL 0.71 MG/DL (0.20-1.00 MG/DL) TOTAL PROTEIN 7.9 GM/DL (6.4-8.2 GM/DL) ALBUMIN 3.6 GM/DL (3.4-5.0 GM/DL) GLOBULIN 4.3 GM/DL H (2.3-3.5 GM/DL) A/G RATIO 0.8 MG/DL L (1.5-2.2 MG/DL) ALK PHOS 63 U/L (46-116 U/L) ALT (SGPT) 23 U/L (16-63 U/L) AST (SGOT) 15 U/L (15-37 U/L) AMYLASE 39 U/L (25-115 U/L) LIPASE 100 U/L (73-393 U/L) Hematology from 12/09/2014 12:00 PMWBC 10.6 X10e3/UL (3.6-11.2 X10e3/UL) RBC 4.38 X10e6/UL (3.63-4.92 X10e6/UL) HEMOGLOBIN 13.4 G/DL (11.0-14.3 G/DL) HEMATOCRIT 39.9 % (31.2-41.9 %) MCV 91.0 FL (79.0-98.0 FL) MCH 30.6 PG (27.0-33.0 PG) MCHC 33.6 G/DL (32.0-36.0 G/DL) RDW 14.4 % (12.3-17.0 %) RDWSD 45.9 (37.1-47.8 ) PLATELET 257 X10e3/UL (159-386 X10e3/UL) MPV 9.0 FL (7.4-10.4 FL) AUTOMATED DIFF PERFORMED SEGS 75.4 % LYMPHOCYTES 15.9 % MONOCYTES 5.6 % EOSINOPHILS 2.7 % BASOPHILS 0.4 % ABSOLUTE NEUTROPHILS 8.00 X10e3/UL H (1.80-7.80 X10e3/UL) ABSOLUTE LYMPHOCYTES 1.70 X10e3/UL (1.00-3.00 X10e3/UL) ABSOLUTE MONOCYTES 0.60 X10e3/UL (0.30-1.00 X10e3/UL) ABSOLUTE EOSINOPHILS 0.30 X10e3/UL (0.00-0.50 X10e3/UL) ABSOLUTE BASOPHILS 0.00 X10e3/UL (0.00-0.20 X10e3/UL) Urinalysis from 12/09/2014 12:15 PMURINE COLOR YELLOW (STRAW/YELL/DK YELL ) URINE APPEARANCE CLOUDY A (CLEAR ) URINE PH 6.0 (5.0-8.0 ) URINE SPECIFIC GRAVITY 1.020 (<=1.005->=1.030 ) URINE GLUCOSE NEGATIVE MG/DL (NEGATIVE MG/DL) URINE BILIRUBIN NEGATIVE (NEGATIVE ) URINE KETONES TRACE MG/DL A (NEGATIVE MG/DL) URINE BLOOD LARGE A (NEGATIVE ) URINE PROTEIN 30 MG/DL A (NEGATIVE MG/DL) URINE UROBILINOGEN 0.2 EU/DL (0.2-1.0 EU/DL) URINE NITRITES NEGATIVE (NEGATIVE ) *URINE LEUKOCYTES NEGATIVE (NEGATIVE ) UR NEGATIVE (NEGATIVE ) MICROSCOPIC EXAM PERFORMED PERFORMED RBC 10-25 /HPF A (0-1 /HPF) SQUAMOUS EP. CELLS MANY /LPF A (NEG-FEW /LPF) MUCOUS THREADS FEW /LPF A (NEGATIVE /LPF) BACTERIA MODERATE /HPF A (NEGATIVE /HPF) AMORPH. URATE PASTOR. MODERATE /HPF (NEGATIVE /HPF) Microbiology from 12/09/2014 12:15 PM* CULTURE URINE (Preliminary Result) Specimen Number: [id number] Sample Collection Date/Time: 12/09/2014 12:15 PM Specimen Source: Urine Clean Catch CULTURE URINE: >100,000 cfu/ml 3 or more gram positive colony types Microbiology from 12/09/2014 12:00 PM* CULTURE GROUP A STREP Specimen Number: [id number] Sample Collection Date/Time: 12/09/2014 12:00 PM Specimen Source: Throat GROUP A STREP, RAPID AG: NEGATIVE FOR GROUP A STREP CULTURE GROUP A STREP: No growth of Streptococcus pyogenes * GROUP A STREP, RAPID AG Specimen Number: [id number] Sample Collection Date/Time: 12/09/2014 12:00 PM Specimen Source: Throat GROUP A STREP, RAPID AG: NEGATIVE FOR GROUP A STREP CULTURE GROUP A STREP: No growth of Streptococcus pyogenes DX Radiology from 12/09/2014 12:36 PMABDOMEN 2 VIEW (FLAT/UPRIGHT) History: cough /nv/ . Technique: 2 view abdomen Priors: None. Findings: The abdominal bowel gas pattern is unremarkable. There is no free intra-abdominal gas. There are no suspicious calculi. Surgical clips in right upper quadrant. Impression: Unremarkable radiographs of the abdomen. Electronically signed by: Talib Abarca MD Dictated: 12/09/2014 12:49 CHEST 2 VIEWS History: cough /nv/. Technique: 2 VIEW CHEST Priors: None Findings: The cardiac silhouette and pulmonary vasculature are within normal limits. There are no acute infiltrates or effusions. Impression: Negative Electronically signed by: Talib Abarca MD Dictated: 12/09/2014 12:49 Problems Encounter Diagnosis No relevant problems exist. [...]
--- OUTSIDE RECORDS SUMMARY | 2016-07-08 16:49 | XMS REPORT ---
Author Author GENERATED, SYSTEM Organization Unknown Address Unknown Phone Unavailable Care Team Providers Care Bridge Teacher Name Role Phone UNASSIGNED DOCTOR , DOCTOR PP [phone] Reason For Visit Chief Complaint INCISION PAIN, LEAKING Social History Functional Status Vital Signs Results [...]
--- OUTSIDE RECORDS SUMMARY | 2016-07-08 16:49 | XMS REPORT ---
Author Author GENERATED, SYSTEM Organization Unknown Address Unknown Phone Unavailable Care Team Providers Care Neck Cutter Name Role Phone UNASSIGNED DOCTOR , DOCTOR PP [phone] Reason For Visit Chief Complaint VOMITING, DIARRHEA Social History Functional Status Vital Signs Results Chemistry from 11/21/2015 2:38 PMSODIUM 141 MMOL/L (136-145 MMOL/L) POTASSIUM 3.8 MMOL/L (3.5-5.1 MMOL/L) CHLORIDE 105 MMOL/L (98-107 MMOL/L) TCO2 31.0 MMOL/L (21.0-32.0 MMOL/L) *ANION GAP 5.0 MMOL/L L (8.0-16.0 MMOL/L) BUN 9 MG/DL (7-18 MG/DL) CREATININE 1.06 MG/DL H (0.55-1.02 MG/DL) *BUN/CREATININE RATIO 8.5 L (9.1-17.0 ) GLUCOSE 91 MG/DL (65-99 MG/DL) *GFR EST NON AFR SAO TOMEAN 71 ML/MIN *GFR EST AFR AMER 82 ML/MIN CALCIUM 8.4 MG/DL L (8.5-10.1 MG/DL) BILIRUBIN TOTAL 0.70 MG/DL (0.20-1.00 MG/DL) TOTAL PROTEIN 7.3 GM/DL (6.4-8.2 GM/DL) ALBUMIN 3.4 GM/DL (3.4-5.0 GM/DL) *GLOBULIN 3.9 GM/DL H (2.3-3.5 GM/DL) *A/G RATIO 0.9 MG/DL L (1.5-2.2 MG/DL) ALK PHOS 61 U/L (46-116 U/L) ALT (SGPT) 25 U/L (16-63 U/L) AST (SGOT) 18 U/L (15-37 U/L) LIPASE 100 U/L (73-393 U/L) LACTIC ACID 1.5 mmol/L (0.9-1.7 mmol/L) Chemistry from 11/21/2015 2:20 PM*COCAINE NEGATIVE (NEG <150 ) *PCP NEGATIVE (NEG <25 ) *CANNABINOIDS NEGATIVE (NEG <50 ) *BENZODIAZEINE NEGATIVE (NEG <200 ) *AMPHETAMINE NEGATIVE (NEG <500 ) *BARBITURATES NEGATIVE (NEG <200 ) *OPIATES POSITIVE A (NEG <300 ) Hematology from 11/21/2015 2:38 PMWBC 8.9 X10e3/UL (3.6-11.2 X10e3/UL) RBC 4.26 X10e6/UL (3.63-4.92 X10e6/UL) HEMOGLOBIN 12.6 G/DL (11.0-14.3 G/DL) HEMATOCRIT 37.8 % (31.2-41.9 %) *MCV 88.8 FL (79.0-98.0 FL) *MCH 29.5 PG (27.0-33.0 PG) *MCHC 33.2 G/DL (32.0-36.0 G/DL) *RDW 13.7 % (12.3-17.0 %) *RDWSD 42.9 (37.1-47.8 ) PLATELET 230 X10e3/UL (159-386 X10e3/UL) *MPV 8.6 FL (7.4-10.4 FL) AUTOMATED DIFF PERFORMED SEGS 69.5 % *LYMPHOCYTES 24.8 % *MONOCYTES 4.7 % *EOSINOPHILS 0.7 % *BASOPHILS 0.3 % *ABSOLUTE NEUTROPHILS 6.20 X10e3/UL (1.80-7.80 X10e3/UL) *ABSOLUTE LYMPHOCYTES 2.20 X10e3/UL (1.00-3.00 X10e3/UL) *ABSOLUTE MONOCYTES 0.40 X10e3/UL (0.30-1.00 X10e3/UL) *ABSOLUTE EOSINOPHILS 0.10 X10e3/UL (0.00-0.50 X10e3/UL) *ABSOLUTE BASOPHILS 0.00 X10e3/UL (0.00-0.20 X10e3/UL) Urinalysis from 11/21/2015 2:20 PM*URINE COLOR YELLOW (STRAW/YELL/DK YELL ) *URINE APPEARANCE SL CLOUDY A (CLEAR ) URINE PH 7.0 (5.0-8.0 ) URINE SPECIFIC GRAVITY 1.020 (<=1.005->=1.030 ) *URINE GLUCOSE NEGATIVE MG/DL (NEGATIVE MG/DL) *URINE BILIRUBIN NEGATIVE (NEGATIVE ) *URINE KETONES NEGATIVE MG/DL (NEGATIVE MG/DL) *URINE BLOOD MODERATE A (NEGATIVE ) *URINE PROTEIN NEGATIVE MG/DL (NEGATIVE MG/DL) *URINE UROBILINOGEN 0.2 EU/DL (0.2-1.0 EU/DL) *URINE NITRITES NEGATIVE (NEGATIVE ) *URINE LEUKOCYTES NEGATIVE (NEGATIVE ) UR NEGATIVE (NEGATIVE ) *MICROSCOPIC EXAM PERFORMED PERFORMED *WBC URINE 0-1 /HPF (0-5 /HPF) *RBC URINE 10-25 /HPF A (0-1 /HPF) *SQUAMOUS EP. CELLS MANY /LPF A (NEG-FEW /LPF) *BACTERIA FEW /HPF A (NEGATIVE /HPF) Body Fluids from 11/21/2015 4:00 PMFECAL OCCULT BLOOD 1 (Hemoccult) NEGATIVE ( NEGATIVE ) CT Scan from 11/21/2015 3:29 PMCT ABD/PELVIS W/CONTRAST History: abdominal pain . Black Harsha stools Technique: Post contrast images were performed after the administration of 95 milliliters of Isovue intravenous contrast. Priors: 09/16/2015 Findings: Abdomen Lung bases: Clear Liver: Mild fatty infiltration of the liver No definable mass. Spleen: Normal. Pancreas: No discrete mass or inflammatory process. Gallbladder and biliary tract: The gallbladder surgically absent. Adrenal glands: Normal. Kidneys: Normal enhancement. No masses. No radiodense stones or hydronephrosis. Urinary Bladder: Normal. Aorta: Normal in caliber. No periaortic lymphadenopathy. Bowel and Mesentery: There is mild diffuse mural thickening of the colon consistent mild colitis. No findings of appendicitis. Ascites: None. There is uncomplicated fat containing umbilical hernia. Pelvis Lymphadenopathy: None. Reproductive: Unremarkable. Osseous Structures: No suspicious findings. Impression: Mild diffuse colitis. Electronically signed by: Stephan Levy MD Dictated: 11/21/2015 15:36 Problems Encounter Diagnosis No relevant problems exist. [...]
--- OUTSIDE RECORDS SUMMARY | 2016-07-08 16:49 | XMS REPORT ---
Author Author GENERATED, SYSTEM Organization Unknown Address Unknown Phone Unavailable Care Team Providers Care Spindle Frame Carver Name Role Phone UNASSIGNED DOCTOR , DOCTOR PP [phone] Reason For Visit Chief Complaint MIGRAINE, PRESSURE IN THROAT Social History Functional Status Vital Signs Results [...]
--- OUTSIDE RECORDS SUMMARY | 2016-07-08 16:49 | XMS REPORT ---
Author Author GENERATED, SYSTEM Organization Unknown Address Unknown Phone Unavailable Care Team Providers Care Supervisor Lace Tearing Name Role Phone UNASSIGNED DOCTOR , DOCTOR PP [phone] Reason For Visit Chief Complaint FALL, L FOOT PAIN Social History Functional Status Vital Signs [...]
--- OUTSIDE RECORDS SUMMARY | 2016-07-08 16:49 | XMS REPORT ---
Author Author GENERATED, SYSTEM Organization Unknown Address Unknown Phone Unavailable Care Team Providers Care Try Out Person Name Role Phone UNASSIGNED DOCTOR , DOCTOR PP [phone] Reason For Visit Chief Complaint MIGRAINE,LEFT AMA Social History Functional Status Vital Signs Results [...]
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
--- OUTSIDE RECORDS SUMMARY | 2016-07-08 16:50 | XMS REPORT ---
Author Author GENERATED, SYSTEM Organization Unknown Address Unknown Phone Unavailable Care Team Providers Care Power Generating Plant Operator Name Role Phone UNASSIGNED DOCTOR , DOCTOR PP [phone] Reason For Visit Chief Complaint STOMACH PAIN Social History Functional Status Vital Signs Results Chemistry from 07/21/2014 4:45 PMSODIUM 139 MMOL/L (136-145 MMOL/L) POTASSIUM 3.7 MMOL/L (3.5-5.1 MMOL/L) CHLORIDE 103 MMOL/L (98-107 MMOL/L) TCO2 29.9 MMOL/L (21.0-32.0 MMOL/L) ANION GAP 6.1 MMOL/L L (8.0-16.0 MMOL/L) BUN 18 MG/DL (7-18 MG/DL) CREATININE 0.94 MG/DL H (0.43-0.83 MG/DL) BUN/CREATININE RATIO 19.1 H (9.1-17.0 ) GLUCOSE 83 MG/DL (65-99 MG/DL) GFR EST NON AFR UZBEK 83 ML/MIN GFRA EST AFR AMER >90 ML/MIN CALCIUM 9.3 MG/DL (8.5-10.1 MG/DL) BILIRUBIN TOTAL 0.96 MG/DL (0.20-1.00 MG/DL) TOTAL PROTEIN 8.4 GM/DL H (6.4-8.2 GM/DL) ALBUMIN 4.0 GM/DL (3.4-5.0 GM/DL) GLOBULIN 4.4 GM/DL H (2.3-3.5 GM/DL) A/G RATIO 0.9 MG/DL L (1.5-2.2 MG/DL) ALK PHOS 63 U/L (46-116 U/L) ALT (SGPT) 26 U/L (16-63 U/L) AST (SGOT) 13 U/L L (15-37 U/L) LIPASE 104 U/L (73-393 U/L) Chemistry from 07/21/2014 4:35 PMCOCAINE NEGATIVE (NEG <150 ) PCP NEGATIVE (NEG <25 ) OXYCODONE POSITIVE A (NEG <100 ) *PROPOXYPHENE (NORPROPOXYPHENE) (LAB) NEGATIVE (NEG <300 ) CANNABINOIDS NEGATIVE (NEG <50 ) BENZODIAZEINE NEGATIVE (NEG <150 ) AMPHETAMINE NEGATIVE (NEG <500 ) BARBITURATES NEGATIVE (NEG <200 ) METHAMPHETAMINES NEGATIVE (NEG <500 ) METHADONE (UR) NEGATIVE (NEG <200 ) OPIATES POSITIVE A (NEG <100 ) TRICYCLICS NEGATIVE (NEG <300 ) Hematology from 07/21/2014 4:45 PMWBC 14.3 X10e3/UL H (3.6-11.2 X10e3/UL) RBC 4.56 X10e6/UL (3.63-4.92 X10e6/UL) HEMOGLOBIN 13.5 G/DL (11.0-14.3 G/DL) HEMATOCRIT 41.3 % (31.2-41.9 %) MCV 90.6 FL (79.0-98.0 FL) MCH 29.7 PG (27.0-33.0 PG) MCHC 32.7 G/DL (32.0-36.0 G/DL) RDW 14.4 % (12.3-17.0 %) RDWSD 45.5 (37.1-47.8 ) PLATELET 259 X10e3/UL (159-386 X10e3/UL) MPV 9.0 FL (7.4-10.4 FL) AUTOMATED DIFF PERFORMED SEGS 66.6 % LYMPHOCYTES 27.9 % MONOCYTES 4.4 % EOSINOPHILS 0.7 % BASOPHILS 0.4 % ABSOLUTE NEUTROPHILS 9.50 X10e3/UL H (1.80-7.80 X10e3/UL) ABSOLUTE LYMPHOCYTES 4.00 X10e3/UL H (1.00-3.00 X10e3/UL) ABSOLUTE MONOCYTES 0.60 X10e3/UL (0.30-1.00 X10e3/UL) ABSOLUTE EOSINOPHILS 0.10 X10e3/UL (0.00-0.50 X10e3/UL) ABSOLUTE BASOPHILS 0.10 X10e3/UL (0.00-0.20 X10e3/UL) Urinalysis from 07/21/2014 4:35 PMURINE COLOR YELLOW (STRAW/YELL/DK YELL ) URINE APPEARANCE SL CLOUDY A (CLEAR ) URINE PH 6.5 (5.0-8.0 ) URINE SPECIFIC GRAVITY 1.025 (<=1.005->=1.030 ) URINE GLUCOSE NEGATIVE MG/DL (NEGATIVE MG/DL) URINE BILIRUBIN NEGATIVE (NEGATIVE ) URINE KETONES NEGATIVE MG/DL (NEGATIVE MG/DL) URINE BLOOD LARGE A (NEGATIVE ) URINE PROTEIN TRACE MG/DL A (NEGATIVE MG/DL) URINE UROBILINOGEN 0.2 EU/DL (0.2-1.0 EU/DL) URINE NITRITES NEGATIVE (NEGATIVE ) *URINE LEUKOCYTES NEGATIVE (NEGATIVE ) UR NEGATIVE (NEGATIVE ) MICROSCOPIC EXAM PERFORMED PERFORMED WBC 0-1 /HPF (0-5 /HPF) RBC 25-50 /HPF A (0-1 /HPF) SQUAMOUS EP. CELLS MANY /LPF A (NEG-FEW /LPF) MUCOUS THREADS FEW /LPF A (NEGATIVE /LPF) BACTERIA MODERATE /HPF A (NEGATIVE /HPF) Microbiology from 07/21/2014 4:35 PM* CULTURE URINE (Preliminary Result) Specimen Number: [id number] Sample Collection Date/Time: 07/21/2014 4:35 PM Specimen Source: Urine DX Radiology from 07/21/2014 5:00 PMABDOMEN 2 VIEW (FLAT/UPRIGHT) (Preliminary Result)DATE OF EXAM: Jul 21 2014 5:37PM Proc: DG 0036 - ABDOMEN 2 VIEW (FLAT/UPRIGHT) CPT Code(s): 54942-; ; ; INDICATION / CLINICAL HISTORY: Abdominal pain. COMPARISON: None. FINDINGS: There is no free air. A surgical clip is noted in the right upper quadrant. There is a moderate amount of stool noted in the colon. There are no dilated loops of bowel. IMPRESSION: No acute abdominal processes. Problems Encounter Diagnosis No relevant problems exist. Encounters Encounter Diagnosis No relevant problems exist. Plan of Care Procedures No relevant procedures performed. Immunizations No immunizations administered or ordered. Hospital Course Hospital Discharge Instructions Allergies, Adverse Reactions, Alerts * Latex Allergy has not been assessed. * IV Contrast Allergy has not been assessed. Medication Medication reconciliation has not been performed.
--- OUTSIDE RECORDS SUMMARY | 2016-07-08 16:50 | XMS REPORT ---
Author Author GENERATED, SYSTEM Organization Unknown Address Unknown Phone Unavailable Care Team Providers Care [employer] Seat Cover Installer Name Role Phone UNASSIGNED DOCTOR , DOCTOR PP [phone] Reason For Visit Chief Complaint FOOT PAIN Social History Functional Status Vital [...]
--- OUTSIDE RECORDS SUMMARY | 2016-07-08 16:50 | XMS REPORT ---
Author Author GENERATED, SYSTEM Organization Unknown Address Unknown Phone Unavailable Care Team Providers Care Ramp Attendant Name Role Phone UNASSIGNED DOCTOR , DOCTOR PP [phone] Reason For Visit Chief Complaint LT FOOT PAIN Social History Functional Status Vital [...]
--- OUTSIDE RECORDS SUMMARY | 2016-07-08 16:50 | XMS REPORT ---
Author Author GENERATED, SYSTEM Organization Unknown Address Unknown Phone Unavailable Care Team Providers Care Control Inspector Name Role Phone UNASSIGNED DOCTOR , DOCTOR PP [phone] Reason For Visit Chief Complaint CEPHALGIA Social History Functional Status Vital Signs Results [...]
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
--- OUTSIDE RECORDS SUMMARY | 2016-07-08 16:51 | XMS REPORT ---
Author Author GENERATED, SYSTEM Organization Unknown Address Unknown Phone Unavailable Care Team Providers Care Tunnel Drier Operator Name Role Phone UNASSIGNED DOCTOR , DOCTOR PP [phone] Reason For Visit Chief Complaint ABD PAIN Social History Functional Status Vital Signs [...]
--- OUTSIDE RECORDS SUMMARY | 2016-07-08 16:52 | XMS REPORT | Referral Summary ---
Author Author [facility] Organization [facility] Address Unknown Phone Unavailable Care Team Providers Care Punchboard Filling Machine Operator Name Role Phone No PCP, Pt States Primary Care Physician [phone] Encounter VC Date(s): 05/01/16 - 05/01/16 [facility] [address] [place] [address] [phone] Discharge Diagnosis: Abdominal wall pain Discharge Disposition: 01-Home or Self Care Attending Physician: Ben Mcpherson DO Admitting Physician: Ben Mcpherson DO Vital Signs Most recent to 1 oldest [Reference Range]: Temperature Oral 36.7 degC [35.8-37.3 degC] (05/01/16 12:24 PM) Peripheral Pulse 91 bpm Rate [60-100 bpm] (05/01/16 12:24 PM) Respiratory Rate 16 br/min [14-20 br/min] (05/01/16 12:24 PM) SpO2 97 % (05/01/16 12:24 PM) Problem List Condition Effective Dates Status [...] 01/08/16 Status: Ordered Non-Formulary Med OTC ACID DUST COLLECTOR ATTENDANT, Oral, TO BRING INFO ON DOS, 0 Refill(s) Start Date: 01/08/16 Status: Ordered Tylenol Caplet 325 mg, Oral, q4hr, as needed for pain, TO BRING INFO ON DOS, 0 Refill(s) Start Date: 01/08/16 Status: Ordered Results No data available for this section Immunizations No data available for this section Procedures Procedure Date Related Diagnosis Body Site Repair Hernia Umbilical1 01/10/16 Cholecystectomy Colonoscopy TMJ SURGERY 1auto-populated from documented surgical case Social History Social History Type Response Smoking Status Never smoker Assessment and Plan No data available for this section
--- OUTSIDE RECORDS SUMMARY | 2016-07-08 16:52 | XMS REPORT ---
Author Author GENERATED, SYSTEM Organization Unknown Address Unknown Phone Unavailable Care Team Providers Care Aeronautics Commission Director Name Role Phone UNASSIGNED DOCTOR , DOCTOR PP [phone] Reason For Visit Chief Complaint ABDOMINAL PAIN Social History Functional Status Vital Signs Results Chemistry from 12/01/2015 10:49 AMSODIUM 139 MMOL/L (136-145 MMOL/L) POTASSIUM 3.9 MMOL/L (3.5-5.1 MMOL/L) CHLORIDE 103 MMOL/L (98-107 MMOL/L) TCO2 32.7 MMOL/L H (21.0-32.0 MMOL/L) *ANION GAP 3.3 MMOL/L L (8.0-16.0 MMOL/L) BUN 12 MG/DL (7-18 MG/DL) CREATININE 0.95 MG/DL (0.55-1.02 MG/DL) *BUN/CREATININE RATIO 12.6 (9.1-17.0 ) GLUCOSE 125 MG/DL H (65-99 MG/DL) *GFR EST NON AFR AFGHAN 81 ML/MIN *GFR EST AFR AMER >90 ML/MIN CALCIUM 8.4 MG/DL L (8.5-10.1 MG/DL) BILIRUBIN TOTAL 0.40 MG/DL (0.20-1.00 MG/DL) TOTAL PROTEIN 7.0 GM/DL (6.4-8.2 GM/DL) ALBUMIN 3.2 GM/DL L (3.4-5.0 GM/DL) *GLOBULIN 3.8 GM/DL H (2.3-3.5 GM/DL) *A/G RATIO 0.8 MG/DL L (1.5-2.2 MG/DL) ALK PHOS 53 U/L (46-116 U/L) ALT (SGPT) 19 U/L (16-63 U/L) AST (SGOT) 13 U/L L (15-37 U/L) LIPASE 116 U/L (73-393 U/L) TEST NEGATIVE (NEGATIVE ) Hematology from 12/01/2015 10:49 AMWBC 9.0 X10e3/UL (3.6-11.2 X10e3/UL) RBC 4.21 X10e6/UL (3.63-4.92 X10e6/UL) HEMOGLOBIN 12.6 G/DL (11.0-14.3 G/DL) HEMATOCRIT 36.9 % (31.2-41.9 %) *MCV 87.8 FL (79.0-98.0 FL) *MCH 29.9 PG (27.0-33.0 PG) *MCHC 34.1 G/DL (32.0-36.0 G/DL) *RDW 13.7 % (12.3-17.0 %) *RDWSD 42.9 (37.1-47.8 ) PLATELET 214 X10e3/UL (159-386 X10e3/UL) *MPV 8.6 FL (7.4-10.4 FL) AUTOMATED DIFF PERFORMED SEGS 66.0 % *LYMPHOCYTES 28.3 % *MONOCYTES 4.3 % *EOSINOPHILS 0.8 % *BASOPHILS 0.6 % *ABSOLUTE NEUTROPHILS 5.90 X10e3/UL (1.80-7.80 X10e3/UL) *ABSOLUTE LYMPHOCYTES 2.60 X10e3/UL (1.00-3.00 X10e3/UL) *ABSOLUTE MONOCYTES 0.40 X10e3/UL (0.30-1.00 X10e3/UL) *ABSOLUTE EOSINOPHILS 0.10 X10e3/UL (0.00-0.50 X10e3/UL) *ABSOLUTE BASOPHILS 0.10 X10e3/UL (0.00-0.20 X10e3/UL) Problems Encounter Diagnosis No relevant problems exist. [...]
--- OUTSIDE RECORDS SUMMARY | 2016-07-08 16:52 | XMS REPORT | Referral Summary ---
Author Author [facility] Organization [facility] Address Unknown Phone Unavailable Care Team Providers Care Apple Checker Name Role Phone No PCP, Pt States Primary Care Physician [phone] Encounter VC Date(s): 06/14/16 - 06/14/[address] [facility] [address] [place], [place] [address] Discharge Diagnosis: Jaw pain Discharge Disposition: 01-Home or Self Care Attending Physician: Go Asher DO Admitting Physician: Go Asher DO Referring Physician: Self Referred, X Vital Signs Most recent to 1 oldest [Reference Range]: Temperature Oral 36.5 degC [35.8-37.3 degC] (06/14/16 4:25 PM) Peripheral Pulse 89 bpm Rate [60-100 bpm] (06/14/16 4:25 PM) Respiratory Rate 18 br/min [14-20 br/min] (06/14/16 4:25 PM) Blood Pressure 110/72 mmHg [90-140/60-90 mmHg] (06/14/16 4:25 PM) SpO2 99 % (06/14/16 4:25 PM) Problem List Condition Effective Dates Status [...] Indication: WHEEZING Start Date: 01/08/16 Status: Ordered Mobic 15 mg oral tablet 15 mg 1 tabs, Oral, Daily, # 15 tabs, 0 Refill(s) Start Date: 06/14/16 Status: Ordered Non-Formulary Med OTC ACID LOGISTIC MANAGER, Oral, TO BRING INFO ON DOS, 0 [...]
--- OUTSIDE RECORDS SUMMARY | 2016-07-08 16:52 | XMS REPORT | Referral Summary ---
Author Author [facility] Organization [facility] Address Unknown Phone Unavailable Care Team Providers Care Forensic Technician Name Role Phone No PCP, Pt States Primary Care Physician [phone] Encounter VC Date(s): 06/11/16 - 06/11/16 [facility] [address], [place] [address] Discharge Diagnosis: Abdominal pain Discharge Diagnosis: Left against medical advice Discharge Disposition: Left Against Medical Advice Attending Physician: Carlos Rangel MD Admitting Physician: Go Asher DO Vital Signs Most recent to 1 oldest [Reference Range]: Temperature Oral 36.5 degC [35.8-37.3 degC] (06/11/16 10:36 AM) Peripheral Pulse 80 bpm Rate [60-100 bpm] (06/11/16 10:36 AM) Respiratory Rate 18 br/min [14-20 br/min] (06/11/16 10:36 AM) Blood Pressure 115/82 mmHg [90-140/60-90 mmHg] (06/11/16 10:36 AM) SpO2 97 % (06/11/16 10:36 AM) Problem List Condition Effective Dates Status Health [...] 01/08/16 Status: Ordered Non-Formulary Med OTC ACID CARPET INSPECTOR, Oral, TO BRING INFO ON DOS, 0 [...]
--- OUTSIDE RECORDS SUMMARY | 2016-07-08 16:54 | XMS REPORT ---
Author Author GENERATED, SYSTEM Organization Unknown Address Unknown Phone Unavailable Care Team Providers Care Stripper Cutter Machine Name Role Phone UNASSIGNED DOCTOR , DOCTOR PP [phone] Reason For Visit Chief Complaint ABDM PAIN, DIARRHEA, VOMITING Social History Functional Status Vital Signs Results [...]
--- OUTSIDE RECORDS SUMMARY | 2016-07-08 16:54 | XMS REPORT ---
Author Author GENERATED, SYSTEM Organization Unknown Address Unknown Phone Unavailable Care Team Providers Care Patrol Conductor Name Role Phone UNASSIGNED DOCTOR , DOCTOR PP [phone] Reason For Visit Chief Complaint NECK/HEAD PAIN Social History Functional Status Vital Signs Results CT Scan from 12/04/2015 9:58 AMCT CEREBRAL W/O CONTRAST History: NACK PAIN QUINTERO . Priors: 10/25/15 Findings: Ventricles and Extra axial spaces: Normal in size and morphology for the patient's age. Hemorrhage: None. Cerebral parenchyma: Normal. Mass effect/midline shift: None. Brainstem/Cerebellum: Normal. Calvarium: Normal. Visualized Paranasal sinuses/Mastoids: Clear. Impression: Unremarkable CT scan of the head. Electronically signed by: Talib Abarca MD Dictated: 12/04/2015 10:45 CT SPINE CERVICAL W/O CONTRAST History: NACK PAIN QUINTERO . Priors: None. Findings: Cervical alignment is within normal limits. There is no acute fracture. Disc spaces are well maintained. No focal disc protrusions or significant central spinal stenosis is identified. The soft tissues are unremarkable. The lung apices are unremarkable. There is straightening of the normal cervical lordosis. This is likely positional in nature. Other etiologies, most commonly muscle spasm, could also be considered. Impression: Strain of the normal cervical lordosis without acute osseous abnormality. Electronically signed by: Talib Abarca MD Dictated: 12/04/2015 10:47 Problems Encounter Diagnosis No relevant problems exist. [...]
--- OUTSIDE RECORDS SUMMARY | 2016-07-08 16:54 | XMS REPORT ---
Author Author GENERATED, SYSTEM Organization Unknown Address Unknown Phone Unavailable Care Team Providers Care Benefit Authorizer Name Role Phone UNASSIGNED DOCTOR , DOCTOR PP [phone] Reason For Visit Chief Complaint ABDONIMAL PAIN, TROUBLE BREATHING Social History Functional Status Vital Signs Results Urinalysis from 09/02/2015 3:50 PM*URINE COLOR STRAW (STRAW/YELL/DK YELL ) *URINE APPEARANCE CLEAR (CLEAR ) URINE PH 6.0 (5.0-8.0 ) URINE SPECIFIC GRAVITY 1.015 (<=1.005->=1.030 [...] URINE 0-1 /HPF (0-5 /HPF) *RBC URINE 1-5 /HPF A (0-1 /HPF) *SQUAMOUS EP. CELLS MODERATE /LPF A (NEG-FEW /LPF) Problems Encounter Diagnosis No relevant problems exist. [...]
--- OUTSIDE RECORDS SUMMARY | 2016-07-08 16:54 | XMS REPORT ---
Author Author GENERATED, SYSTEM Organization Unknown Address Unknown Phone Unavailable Care Team Providers Care Automobile Rental Representative Name Role Phone UNASSIGNED DOCTOR , DOCTOR PP [phone] Reason For Visit Chief Complaint BACTERIAL VAGINOSIS Social History Functional Status Vital Signs Results Chemistry from 03/11/2016 12:53 PMSODIUM 140 MMOL/L (136-145 MMOL/L) POTASSIUM 3.8 MMOL/L (3.5-5.1 MMOL/L) CHLORIDE 103 MMOL/L (98-107 MMOL/L) TCO2 26.2 MMOL/L (21.0-32.0 MMOL/L) *ANION GAP 10.8 MMOL/L (8.0-16.0 MMOL/L) BUN 13 MG/DL (7-18 MG/DL) CREATININE 1.07 MG/DL H (0.55-1.02 MG/DL) *BUN/CREATININE RATIO 12.1 (9.1-17.0 ) GLUCOSE 108 MG/DL H (65-99 MG/DL) *GFR EST NON AFR FILIPINO 70 ML/MIN *GFR EST AFR AMER 81 ML/MIN CALCIUM 9.0 MG/DL (8.5-10.1 MG/DL) BILIRUBIN TOTAL 0.30 MG/DL (0.20-1.00 MG/DL) TOTAL PROTEIN 7.9 GM/DL (6.4-8.2 GM/DL) ALBUMIN 3.6 GM/DL (3.4-5.0 GM/DL) *GLOBULIN 4.3 GM/DL H (2.3-3.5 GM/DL) *A/G RATIO 0.8 MG/DL L (1.5-2.2 MG/DL) ALK PHOS 55 U/L (46-116 U/L) ALT (SGPT) 17 U/L (16-63 U/L) AST (SGOT) 11 U/L L (15-37 U/L) Urinalysis from 03/11/2016 12:05 PM*URINE COLOR STRAW (STRAW/YELL/DK YELL ) *URINE APPEARANCE SL CLOUDY A (CLEAR ) URINE PH 6.0 (5.0-8.0 ) URINE SPECIFIC GRAVITY 1.015 (<=1.005->=1.030 ) *URINE GLUCOSE NEGATIVE MG/DL (NEGATIVE MG/DL) *URINE BILIRUBIN NEGATIVE (NEGATIVE ) *URINE KETONES NEGATIVE MG/DL (NEGATIVE MG/DL) *URINE BLOOD LARGE A (NEGATIVE ) *URINE PROTEIN NEGATIVE MG/DL (NEGATIVE MG/DL) *URINE UROBILINOGEN 0.2 EU/DL (0.2-1.0 EU/DL) *URINE NITRITES NEGATIVE (NEGATIVE ) *URINE LEUKOCYTES NEGATIVE (NEGATIVE ) UR NEGATIVE (NEGATIVE ) *MICROSCOPIC EXAM PERFORMED PERFORMED *WBC URINE 1-5 /HPF (0-5 /HPF) *RBC URINE 1-5 /HPF A (0-1 /HPF) *SQUAMOUS EP. CELLS MANY /LPF A (NEG-FEW /LPF) *MUCOUS THREADS FEW /LPF A (NEGATIVE /LPF) *BACTERIA MANY /HPF A (NEGATIVE /HPF) Microbiology from 03/11/2016 12:30 PM* *REBECA- FUNGAL SMEAR Specimen Number: [id number] Sample Collection Date/Time: 03/11/2016 12:30 PM Specimen Source: Cervix *WET PREP: No Trichomonas seen Clue cells seen *REBECA- FUNGAL SMEAR: No yeast or fungal elements seen * *WET PREP Specimen Number: [id number] Sample Collection Date/Time: 03/11/2016 12:30 PM Specimen Source: Cervix *REBECA- FUNGAL SMEAR: No yeast or fungal elements seen *WET PREP: No Trichomonas seen Clue cells seen Microbiology from 03/11/2016 12:05 PM* CULTURE URINE (Preliminary Result) Specimen Number: [id number] Sample Collection Date/Time: 03/11/2016 12:05 PM Specimen Source: Urine Clean Catch CULTURE URINE: 10,000 cfu/ml - 50,000 cfu/ml gram positive colony types Problems Encounter Diagnosis No relevant problems exist. [...]
--- OUTSIDE RECORDS SUMMARY | 2016-07-08 16:54 | XMS REPORT ---
Author Author GENERATED, SYSTEM Organization Unknown Address Unknown Phone Unavailable Care Team Providers Care Registered Pharmacy Technician Name Role Phone UNASSIGNED DOCTOR MD GRUPO DOCTOR PP [phone] Reason For Visit Chief Complaint WRIST SPRAIN Social History Functional Status Vital Signs Results DX Radiology from 02/18/2016 2:47 PMWRIST RIGHT 3 VIEWS History: Right wrist injury and pain Technique: 3 view wrist Priors: 04/22/2015 Findings: There is no acute fracture or subluxation. The distal radius and ulna are intact. The carpals are normally aligned. Impression: Unremarkable radiographs of the right wrist. Electronically signed by: Stephan Levy MD Dictated: 02/18/2016 15:04 Problems Encounter Diagnosis No relevant problems exist. [...]
--- OUTSIDE RECORDS SUMMARY | 2016-07-08 16:54 | XMS REPORT ---
Author Author GENERATED, SYSTEM Organization Unknown Address Unknown Phone Unavailable Care Team Providers Care Dry Wall Sprayer Name Role Phone UNASSIGNED DOCTOR , DOCTOR PP [phone] Reason For Visit Chief Complaint CHEST PAIN Social History Functional Status Vital Signs Results Chemistry from 05/14/2015 2:15 PMSODIUM 138 MMOL/L (136-145 MMOL/L) POTASSIUM 3.7 MMOL/L (3.5-5.1 MMOL/L) CHLORIDE 104 MMOL/L (98-107 MMOL/L) TCO2 30.8 MMOL/L (21.0-32.0 MMOL/L) *ANION GAP 3.2 MMOL/L L (8.0-16.0 MMOL/L) BUN 12 MG/DL (7-18 MG/DL) CREATININE 1.12 MG/DL H (0.55-1.02 MG/DL) *BUN/CREATININE RATIO 10.7 (9.1-17.0 ) GLUCOSE 82 MG/DL (65-99 MG/DL) *GFR EST NON AFR CENTRAL AFRICAN 66 ML/MIN *GFRA EST AFR AMER 77 ML/MIN CALCIUM 9.0 MG/DL (8.5-10.1 MG/DL) BILIRUBIN TOTAL 0.50 MG/DL (0.20-1.00 MG/DL) TOTAL PROTEIN 7.4 GM/DL (6.4-8.2 GM/DL) ALBUMIN 3.6 GM/DL (3.4-5.0 GM/DL) *GLOBULIN 3.8 GM/DL H (2.3-3.5 GM/DL) *A/G RATIO 0.9 MG/DL L (1.5-2.2 MG/DL) ALK PHOS 73 U/L (46-116 U/L) ALT (SGPT) 82 U/L H (16-63 U/L) AST (SGOT) 42 U/L H (15-37 U/L) TROPONIN-I 0.06 NG/ML (SEE BELOW NG/ML) TSH 2.99 UIU/ML (0.34-4.82 UIU/ML) TEST NEGATIVE (NEGATIVE ) Hematology from 05/14/2015 2:15 PMWBC 8.9 X10e3/UL (3.6-11.2 X10e3/UL) RBC 4.17 X10e6/UL (3.63-4.92 X10e6/UL) HEMOGLOBIN 12.7 G/DL (11.0-14.3 G/DL) HEMATOCRIT 37.5 % (31.2-41.9 %) *MCV 89.7 FL (79.0-98.0 FL) *MCH 30.4 PG (27.0-33.0 PG) *MCHC 33.9 G/DL (32.0-36.0 G/DL) *RDW 13.7 % (12.3-17.0 %) *RDWSD 43.3 (37.1-47.8 ) PLATELET 266 X10e3/UL (159-386 X10e3/UL) *MPV 9.0 FL (7.4-10.4 FL) AUTOMATED DIFF PERFORMED SEGS 49.5 % *LYMPHOCYTES 43.2 % *MONOCYTES 4.4 % *EOSINOPHILS 1.8 % *BASOPHILS 1.1 % *ABSOLUTE NEUTROPHILS 4.40 X10e3/UL (1.80-7.80 X10e3/UL) *ABSOLUTE LYMPHOCYTES 3.80 X10e3/UL H (1.00-3.00 X10e3/UL) *ABSOLUTE MONOCYTES 0.40 X10e3/UL (0.30-1.00 X10e3/UL) *ABSOLUTE EOSINOPHILS 0.20 X10e3/UL (0.00-0.50 X10e3/UL) *ABSOLUTE BASOPHILS 0.10 X10e3/UL (0.00-0.20 X10e3/UL) Urinalysis from 05/14/2015 2:45 PM*URINE COLOR YELLOW (STRAW/YELL/DK YELL ) *URINE APPEARANCE SL CLOUDY A (CLEAR ) URINE PH 5.0 (5.0-8.0 ) URINE SPECIFIC GRAVITY >1.030 (<=1.005->=1.030 ) *URINE GLUCOSE NEGATIVE MG/DL (NEGATIVE [...] EP. CELLS MODERATE /LPF A (NEG-FEW /LPF) *MUCOUS THREADS FEW /LPF A (NEGATIVE /LPF) *AMORPH. URATE PASTOR. FEW /HPF (NEGATIVE /HPF) Coagulation from 05/14/2015 2:15 PMD-DIMER 0.28 MG/L FEU (0.00-0.50 MG/L FEU) DX Radiology from 05/14/2015 2:56 PMCHEST 2 VIEWS History: pleuritic chest pain. Technique: 2 VIEW CHEST Priors: 12/09/14 Findings: The cardiac silhouette and pulmonary vasculature are within normal limits. There are no acute infiltrates or effusions. Impression: No acute cardiopulmonary disease. Electronically signed by: Talib Abarca MD Dictated: 05/14/2015 15:14 Problems Encounter Diagnosis No relevant problems exist. [...]
--- OUTSIDE RECORDS SUMMARY | 2016-07-08 16:55 | XMS REPORT ---
Author Author GENERATED, SYSTEM Organization Unknown Address Unknown Phone Unavailable Care Team Providers Care Enterprise Application Administrator Name Role Phone UNASSIGNED DOCTOR , DOCTOR PP [phone] Reason For Visit Chief Complaint POST-OP WOUND CHECK, 1CM NON-ACUTE,SUPERFICIAL WOUND DEHISCENCE, UMBILICAL Social History Functional Status Vital Signs Results [...]
--- OUTSIDE RECORDS SUMMARY | 2016-07-08 16:55 | XMS REPORT ---
Author Author GENERATED, SYSTEM Organization Unknown Address Unknown Phone Unavailable Care Team Providers Care Furniture Polisher Name Role Phone UNASSIGNED DOCTOR , DOCTOR PP [phone] Reason For Visit Chief Complaint LT FOOT PAIN, FALL Social History Functional Status Vital Signs Results DX Radiology from 10/10/2015 10:59 AMFOOT LEFT 3 VIEWS History: Fall. Pain to mid left foot. Technique: 3view foot Priors: None. Findings: No acute fractures or subluxations are identified. The hindfoot, midfoot and forefoot appear intact. Impression: Unremarkable radiographs of the left foot. Electronically signed by: Talib Abarca MD Dictated: 10/10/2015 13:31 Problems Encounter Diagnosis No relevant problems exist. [...]
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
--- OUTSIDE RECORDS SUMMARY | 2016-07-08 16:55 | XMS REPORT ---
Author Author GENERATED, SYSTEM Organization Unknown Address Unknown Phone Unavailable Care Team Providers Care Refrigeration Unit Repairer Name Role Phone UNASSIGNED DOCTOR , DOCTOR PP [phone] Reason For Visit Chief Complaint ACUTE MID ABDOMINAL PAIN Social History Functional Status Vital Signs Results Chemistry from 03/25/2016 3:17 PMSODIUM 139 MMOL/L (136-145 MMOL/L) POTASSIUM 4.1 MMOL/L (3.5-5.1 MMOL/L) CHLORIDE 105 MMOL/L (98-107 MMOL/L) TCO2 29.6 MMOL/L (21.0-32.0 MMOL/L) *ANION GAP 4.4 MMOL/L L (8.0-16.0 MMOL/L) BUN 11 MG/DL (7-18 MG/DL) CREATININE 0.95 MG/DL (0.55-1.02 MG/DL) *BUN/CREATININE RATIO 11.6 (9.1-17.0 ) GLUCOSE 93 MG/DL (65-99 MG/DL) *GFR EST NON AFR BARBADIAN 81 ML/MIN *GFR EST AFR AMER >90 ML/MIN CALCIUM 8.9 MG/DL (8.5-10.1 MG/DL) BILIRUBIN TOTAL 0.50 MG/DL (0.20-1.00 MG/DL) TOTAL PROTEIN 7.6 GM/DL (6.4-8.2 GM/DL) ALBUMIN 3.4 GM/DL (3.4-5.0 GM/DL) *GLOBULIN 4.2 GM/DL H (2.3-3.5 GM/DL) *A/G RATIO 0.8 MG/DL L (1.5-2.2 MG/DL) ALK PHOS 58 U/L (46-116 U/L) ALT (SGPT) 38 U/L (16-63 U/L) AST (SGOT) 27 U/L (15-37 U/L) LIPASE 96 U/L (73-393 U/L) Hematology from 03/25/2016 3:17 PMWBC 7.9 X10e3/UL (3.6-11.2 X10e3/UL) RBC 4.42 X10e6/UL (3.63-4.92 X10e6/UL) HEMOGLOBIN 13.1 G/DL (11.0-14.3 G/DL) HEMATOCRIT 39.4 % (31.2-41.9 %) *MCV 89.3 FL (79.0-98.0 FL) *MCH 29.7 PG (27.0-33.0 PG) *MCHC 33.3 G/DL (32.0-36.0 G/DL) *RDW 14.8 % (12.3-17.0 %) *RDWSD 46.8 (37.1-47.8 ) PLATELET 240 X10e3/UL (159-386 X10e3/UL) *MPV 8.6 FL (7.4-10.4 FL) AUTOMATED DIFF PERFORMED SEGS 57.9 % *LYMPHOCYTES 33.7 % *MONOCYTES 5.8 % *EOSINOPHILS 1.8 % *BASOPHILS 0.8 % *ABSOLUTE NEUTROPHILS 4.60 X10e3/UL (1.80-7.80 X10e3/UL) *ABSOLUTE LYMPHOCYTES 2.70 X10e3/UL (1.00-3.00 X10e3/UL) *ABSOLUTE MONOCYTES 0.50 X10e3/UL (0.30-1.00 X10e3/UL) *ABSOLUTE EOSINOPHILS 0.10 X10e3/UL [...]
--- OUTSIDE RECORDS SUMMARY | 2016-07-08 16:55 | XMS REPORT ---
Author Author GENERATED, SYSTEM Organization Unknown Address Unknown Phone Unavailable Care Team Providers Care Pattern Drafter Name Role Phone UNASSIGNED DOCTOR , DOCTOR PP [phone] Reason For Visit Chief Complaint BLOODY STOOLS Social History Functional Status Vital Signs Results Body Fluids from 04/13/2016 12:15 PMFECAL OCCULT BLOOD 1 (Hemoccult) POSITIVE A (NEGATIVE ) Problems Encounter Diagnosis No relevant problems exist. [...]
--- OUTSIDE RECORDS SUMMARY | 2016-07-08 16:56 | XMS REPORT ---
Author Author GENERATED, SYSTEM Organization Unknown Address Unknown Phone Unavailable Care Team Providers Care Seconds Handler Name Role Phone UNASSIGNED DOCTOR , DOCTOR PP [phone] Reason For Visit Chief Complaint ADOMINAL PAIN RECTAL BLEEDING Social History Functional Status Vital Signs Results Chemistry from 07/23/2014 1:40 PMSODIUM 141 MMOL/L (136-145 MMOL/L) POTASSIUM 3.9 MMOL/L (3.5-5.1 MMOL/L) CHLORIDE 104 MMOL/L (98-107 MMOL/L) TCO2 27.5 MMOL/L (21.0-32.0 MMOL/L) ANION GAP 9.5 MMOL/L (8.0-16.0 MMOL/L) BUN 20 MG/DL H (7-18 MG/DL) CREATININE 1.12 MG/DL H (0.43-0.83 MG/DL) BUN/CREATININE RATIO 17.9 H (9.1-17.0 ) GLUCOSE 84 MG/DL (65-99 MG/DL) GFR EST NON AFR SWISS 67 ML/MIN GFRA EST AFR AMER 77 ML/MIN CALCIUM 9.5 MG/DL (8.5-10.1 MG/DL) BILIRUBIN TOTAL 1.39 MG/DL H (0.20-1.00 MG/DL) TOTAL PROTEIN 8.4 GM/DL H (6.4-8.2 GM/DL) ALBUMIN 4.0 GM/DL (3.4-5.0 GM/DL) GLOBULIN 4.4 GM/DL H (2.3-3.5 GM/DL) A/G RATIO 0.9 MG/DL L (1.5-2.2 MG/DL) ALK PHOS 64 U/L (46-116 U/L) ALT (SGPT) 25 U/L (16-63 U/L) AST (SGOT) 19 U/L (15-37 U/L) LIPASE 105 U/L (73-393 U/L) Hematology from 07/23/2014 1:40 PMWBC 11.2 X10e3/UL (3.6-11.2 X10e3/UL) RBC 4.63 X10e6/UL (3.63-4.92 X10e6/UL) HEMOGLOBIN 14.3 G/DL (11.0-14.3 G/DL) HEMATOCRIT 41.9 % (31.2-41.9 %) MCV 90.3 FL (79.0-98.0 FL) MCH 30.8 PG (27.0-33.0 PG) MCHC 34.1 G/DL (32.0-36.0 G/DL) RDW 14.3 % (12.3-17.0 %) RDWSD 44.6 (37.1-47.8 ) PLATELET 243 X10e3/UL (159-386 X10e3/UL) MPV 9.5 FL (7.4-10.4 FL) AUTOMATED DIFF PERFORMED SEGS 62.6 % LYMPHOCYTES 30.7 % MONOCYTES 4.7 % EOSINOPHILS 1.3 % BASOPHILS 0.7 % ABSOLUTE NEUTROPHILS 7.00 X10e3/UL (1.80-7.80 X10e3/UL) ABSOLUTE LYMPHOCYTES 3.40 X10e3/UL H (1.00-3.00 X10e3/UL) ABSOLUTE MONOCYTES 0.50 X10e3/UL (0.30-1.00 X10e3/UL) ABSOLUTE EOSINOPHILS 0.10 X10e3/UL (0.00-0.50 X10e3/UL) ABSOLUTE BASOPHILS 0.10 X10e3/UL (0.00-0.20 X10e3/UL) Urinalysis from 07/23/2014 2:00 PMURINE COLOR YELLOW (STRAW/YELL/DK YELL ) URINE APPEARANCE CLEAR (CLEAR ) URINE PH 6.0 (5.0-8.0 ) URINE SPECIFIC GRAVITY >1.030 (<=1.005->=1.030 ) URINE GLUCOSE NEGATIVE MG/DL (NEGATIVE MG/DL) URINE BILIRUBIN NEGATIVE (NEGATIVE ) URINE KETONES NEGATIVE MG/DL (NEGATIVE MG/DL) URINE BLOOD LARGE A (NEGATIVE ) URINE PROTEIN TRACE MG/DL A (NEGATIVE MG/DL) URINE UROBILINOGEN 0.2 EU/DL (0.2-1.0 EU/DL) URINE NITRITES NEGATIVE (NEGATIVE ) *URINE LEUKOCYTES NEGATIVE (NEGATIVE ) UR NEGATIVE (NEGATIVE ) MICROSCOPIC EXAM PERFORMED PERFORMED RBC 1-5 /HPF A (0-1 /HPF) SQUAMOUS EP. CELLS MANY /LPF A (NEG-FEW /LPF) BACTERIA MODERATE /HPF A (NEGATIVE /HPF) AMORPH. URATE PASTOR. MODERATE /HPF (NEGATIVE /HPF) COMMENT See Below CT Scan from 07/23/2014 2:52 PMCT ABD/PELVIS W/CONTRAST DATE OF EXAM: Jul 23 2014 2:57PM Proc: CT 0232 - CT ABD/PELVIS W/ CONTRAST CPT Code(s): 97075-; ; ; INDICATION / CLINICAL HISTORY: Abdomen pain, rectal bleeding TECHNIQUE: The study was performed with 95 ml of Isovue 300 IV contrast. FINDINGS: ABDOMEN: The lung bases appear clear. The liver, spleen, pancreas, adrenal glands, and right kidney appear unremarkable. There is an abnormal enhancement pattern of the left kidney with focal cortical and enhancement defects identified throughout the left kidney with mild left nephromegaly suspicious for pyelonephritis. There is mild diffuse mural thickening of the colon also suspicious for colitis. There is an uncomplicated fat-containing umbilical hernia. PELVIS: The bladder, uterus and adnexa appear unremarkable. There is no CT evidence of appendicitis. IMPRESSION: 1. Diffuse mural thickening of the colon consistent with colitis, possibly inflammatory bowel disease. 2. Abnormal enhancement pattern of the left kidney suspicious for an inflammatory process such as pyelonephritis. Clinical correlation and correlation with lab values is recommended for further evaluation. Problems Encounter Diagnosis No relevant problems exist. [...]
--- OUTSIDE RECORDS SUMMARY | 2016-07-08 16:56 | XMS REPORT ---
Author Author GENERATED, SYSTEM Organization Unknown Address Unknown Phone Unavailable Care Team Providers Care Budget Consultant Name Role Phone UNASSIGNED DOCTOR , DOCTOR PP [phone] Reason For Visit Chief Complaint ABD PAIN Social History Functional Status Vital Signs Results Chemistry from 12/12/2015 12:45 AMSODIUM 140 MMOL/L (136-145 MMOL/L) POTASSIUM 3.8 MMOL/L (3.5-5.1 MMOL/L) CHLORIDE 103 MMOL/L (98-107 MMOL/L) TCO2 31.5 MMOL/L (21.0-32.0 MMOL/L) *ANION GAP 5.5 MMOL/L L (8.0-16.0 MMOL/L) BUN 13 MG/DL (7-18 MG/DL) CREATININE 1.10 MG/DL H (0.55-1.02 MG/DL) *BUN/CREATININE RATIO 11.8 (9.1-17.0 ) GLUCOSE 84 MG/DL (65-99 MG/DL) *GFR EST NON AFR MICRONESIAN 68 ML/MIN *GFR EST AFR AMER 78 ML/MIN CALCIUM 8.7 MG/DL (8.5-10.1 MG/DL) BILIRUBIN TOTAL 0.50 MG/DL (0.20-1.00 MG/DL) TOTAL PROTEIN 7.8 GM/DL (6.4-8.2 GM/DL) ALBUMIN 3.6 GM/DL (3.4-5.0 GM/DL) *GLOBULIN 4.2 GM/DL H (2.3-3.5 GM/DL) *A/G RATIO 0.9 MG/DL L (1.5-2.2 MG/DL) ALK PHOS 60 U/L (46-116 U/L) ALT (SGPT) 19 U/L (16-63 U/L) AST (SGOT) 12 U/L L (15-37 U/L) Chemistry from 12/12/2015 12:40 AM*COCAINE NEGATIVE (NEG <150 ) *PCP NEGATIVE (NEG <25 ) *CANNABINOIDS NEGATIVE (NEG <50 ) *BENZODIAZEINE NEGATIVE (NEG <200 ) *AMPHETAMINE NEGATIVE (NEG <500 ) *BARBITURATES NEGATIVE (NEG <200 ) *OPIATES POSITIVE A (NEG <300 ) Hematology from 12/12/2015 12:45 AMWBC 10.5 X10e3/UL (3.6-11.2 X10e3/UL) RBC 4.17 X10e6/UL (3.63-4.92 X10e6/UL) HEMOGLOBIN 12.3 G/DL (11.0-14.3 G/DL) HEMATOCRIT 36.8 % (31.2-41.9 %) *MCV 88.2 FL (79.0-98.0 FL) *MCH 29.6 PG (27.0-33.0 PG) *MCHC 33.5 G/DL (32.0-36.0 G/DL) *RDW 13.2 % (12.3-17.0 %) PLATELET 312 X10e3/UL (159-386 X10e3/UL) *MPV 8.1 FL (7.4-10.4 FL) AUTOMATED DIFF PERFORMED SEGS 52.2 % *LYMPHOCYTES 39.6 % *MONOCYTES 6.4 % *EOSINOPHILS 1.4 % *BASOPHILS 0.4 % *ABSOLUTE NEUTROPHILS 5.50 X10e3/UL (1.80-7.80 X10e3/UL) *ABSOLUTE LYMPHOCYTES 4.20 X10e3/UL H (1.00-3.00 X10e3/UL) *ABSOLUTE MONOCYTES 0.70 X10e3/UL (0.30-1.00 X10e3/UL) *ABSOLUTE EOSINOPHILS 0.10 X10e3/UL (0.00-0.50 X10e3/UL) *ABSOLUTE BASOPHILS 0.00 X10e3/UL (0.00-0.20 X10e3/UL) Urinalysis from 12/12/2015 12:40 AM*URINE COLOR YELLOW (STRAW/YELL/DK YELL ) *URINE APPEARANCE CLEAR (CLEAR ) URINE PH 5.5 [...] URINE 1-5 /HPF (0-5 /HPF) *RBC URINE 5-10 /HPF A (0-1 /HPF) *SQUAMOUS EP. CELLS MODERATE /LPF A (NEG-FEW /LPF) *MUCOUS THREADS FEW /LPF A (NEGATIVE /LPF) *YEAST FEW /HPF A (NEGATIVE /HPF) Problems Encounter [...]
--- OUTSIDE RECORDS SUMMARY | 2016-07-08 16:57 | XMS REPORT ---
Author Author GENERATED, SYSTEM Organization Unknown Address Unknown Phone Unavailable Care Team Providers Care Regional Forester Name Role Phone UNASSIGNED DOCTOR , DOCTOR PP [phone] Reason For Visit Chief Complaint MIGRAINE Social [...]
--- OUTSIDE RECORDS SUMMARY | 2016-07-08 16:57 | XMS REPORT ---
Author Author GENERATED, SYSTEM Organization Unknown Address Unknown Phone Unavailable Care Team Providers Care Inventory Coordinator Name Role Phone UNASSIGNED DOCTOR , DOCTOR PP [phone] Reason For Visit Chief Complaint FALL, ABD PAIN Social History Functional Status Vital [...]
--- OUTSIDE RECORDS SUMMARY | 2016-07-08 16:57 | XMS REPORT ---
Author Author GENERATED, SYSTEM Organization Unknown Address Unknown Phone Unavailable Care Team Providers Care Clinical Laboratory Manager Name Role Phone UNASSIGNED DOCTOR , DOCTOR PP [phone] Reason For Visit Chief Complaint INCISION PAIN Social History Functional Status Vital Signs [...]
--- OUTSIDE RECORDS SUMMARY | 2016-07-08 16:57 | XMS REPORT ---
Author Author GENERATED, SYSTEM Organization Unknown Address Unknown Phone Unavailable Care Team Providers Care Forest Products Teacher Name Role Phone UNASSIGNED DOCTOR , DOCTOR PP [phone] Reason For Visit Chief Complaint ABD PAIN [...]
--- OUTSIDE RECORDS SUMMARY | 2016-07-08 16:58 | XMS REPORT ---
Author Author GENERATED, SYSTEM Organization Unknown Address Unknown Phone Unavailable Care Team Providers Care Confectionery Cooker Name Role Phone UNASSIGNED DOCTOR , DOCTOR PP [phone] Reason For Visit Chief Complaint MIGRAINE STOMACH PAINS Social History Functional Status Vital Signs Results [...]
--- OUTSIDE RECORDS SUMMARY | 2016-07-08 16:58 | XMS REPORT ---
Author Author GENERATED, SYSTEM Organization Unknown Address Unknown Phone Unavailable Care Team Providers Care Aluminum Polisher Name Role Phone UNASSIGNED DOCTOR , DOCTOR PP [phone] Reason For Visit Chief Complaint PAIN IN INCISION Social History Functional Status Vital Signs Results [...]
--- OUTSIDE RECORDS SUMMARY | 2016-07-08 16:58 | XMS REPORT ---
Author Author GENERATED, SYSTEM Organization Unknown Address Unknown Phone Unavailable Care Team Providers Care Diagnostic Radiologic Technologist Name Role Phone UNASSIGNED DOCTOR , DOCTOR PP [phone] Reason For Visit Chief Complaint MIGRAINE, ABD PAIN Social History Functional Status Vital [...]
--- OUTSIDE RECORDS SUMMARY | 2016-07-08 16:58 | XMS REPORT ---
Author Author GENERATED, SYSTEM Organization Unknown Address Unknown Phone Unavailable Care Team Providers Care Electrical Plumbing Supervisor Name Role Phone UNASSIGNED DOCTOR , DOCTOR PP [phone] Reason For Visit Chief Complaint SOB, CHEST PAIN, ARM NUMB Social History Functional Status Vital Signs Results Blood Gas from 12/07/2015 3:23 AM*VENOUS PH 7.345 (7.320-7.430 ) VENOUS PCO2 52.5 MM HG H (38.0-50.0 MM HG) *VENOUS PO2 41 MM HG (38-42 MM HG) *VENOUS TCO2 25.4 mmol/L (23.0-30.0 mmol/L) JAKOB. BICARBONATE 27.9 MEQ/L (22.0-29.0 MEQ/L) *JAKOB. BASE EXCESS 1.8 (-3.0-3.0 ) JAKOB. O2 SATURATION 73.1 % (70.0-80.0 %) PATIENT ATMOSPHERE ROOM AIR Chemistry from 12/07/2015 3:23 AMSODIUM 138 MMOL/L (136-145 MMOL/L) POTASSIUM 3.7 MMOL/L (3.5-5.1 MMOL/L) CHLORIDE 101 MMOL/L (98-107 MMOL/L) TCO2 30.6 MMOL/L (21.0-32.0 MMOL/L) *ANION GAP 6.4 MMOL/L L (8.0-16.0 MMOL/L) BUN 14 MG/DL (7-18 MG/DL) CREATININE 1.08 MG/DL H (0.55-1.02 MG/DL) *BUN/CREATININE RATIO 13.0 (9.1-17.0 ) CREATININE, RAPID WHOLE BLOOD 0.96 MG/DL H (0.43-0.83 MG/DL) GLUCOSE 130 MG/DL H (65-99 MG/DL) *GFR EST NON AFR LAO 69 ML/MIN *GFR EST AFR AMER 80 ML/MIN CALCIUM 8.3 MG/DL L (8.5-10.1 MG/DL) BILIRUBIN TOTAL 0.60 MG/DL (0.20-1.00 MG/DL) TOTAL PROTEIN 7.6 GM/DL (6.4-8.2 GM/DL) ALBUMIN 3.6 GM/DL (3.4-5.0 GM/DL) *GLOBULIN 4.0 GM/DL H (2.3-3.5 GM/DL) *A/G RATIO 0.9 MG/DL L (1.5-2.2 MG/DL) ALK PHOS 53 U/L (46-116 U/L) ALT (SGPT) 17 U/L (16-63 U/L) AST (SGOT) 12 U/L L (15-37 U/L) LIPASE 145 U/L (73-393 U/L) TROPONIN-I <0.017 NG/ML (0.000-0.056 NG/ML) Hematology from 12/07/2015 3:23 AMWBC 10.7 X10e3/UL (3.6-11.2 X10e3/UL) RBC 4.41 X10e6/UL (3.63-4.92 X10e6/UL) HEMOGLOBIN 13.2 G/DL (11.0-14.3 G/DL) HEMATOCRIT 39.5 % (31.2-41.9 %) *MCV 89.5 FL (79.0-98.0 FL) *MCH 29.9 PG (27.0-33.0 PG) *MCHC 33.4 G/DL (32.0-36.0 G/DL) *RDW 14.0 % (12.3-17.0 %) *RDWSD 44.6 (37.1-47.8 ) PLATELET 272 X10e3/UL (159-386 X10e3/UL) *MPV 8.7 FL (7.4-10.4 FL) AUTOMATED DIFF PERFORMED SEGS 54.1 % *LYMPHOCYTES 38.4 % *MONOCYTES 5.9 % *EOSINOPHILS 1.3 % *BASOPHILS 0.3 % *ABSOLUTE NEUTROPHILS 5.80 X10e3/UL (1.80-7.80 X10e3/UL) *ABSOLUTE LYMPHOCYTES 4.10 X10e3/UL H (1.00-3.00 X10e3/UL) *ABSOLUTE MONOCYTES 0.60 X10e3/UL (0.30-1.00 X10e3/UL) *ABSOLUTE EOSINOPHILS 0.10 X10e3/UL (0.00-0.50 X10e3/UL) *ABSOLUTE BASOPHILS 0.00 X10e3/UL (0.00-0.20 X10e3/UL) Coagulation from 12/07/2015 3:23 AMD-DIMER <0.19 MG/L FEU (0.00-0.50 MG/L FEU) CT Scan from 12/07/2015 4:15 AMCT CHEST (CTA) History: Substernal chest pain which increases with deep inspiration. Technique: Post contrast images were performed after the administration of 95 milliliters of Isovue intravenous contrast. 3 dimensional reconstructions were performed by the technologist. Priors: None. Findings: Heart Size: Normal. Aorta: Intact and normal in size. Mediastinum and Merry: The left lobe of the thyroid is mildly enlarged. Pulmonary Arteries: No evidence of filling defect to suggest pulmonary emboli. Pleura: No effusion or pneumothorax. Pulmonary parenchyma: No consolidation or dominant measurable mass. Upper abdomen: Unremarkable. Impression: No acute cardiopulmonary disease. Electronically signed by: Talib Abarca MD Dictated: 12/07/2015 10:48 Problems Encounter Diagnosis No relevant problems exist. [...]
--- OUTSIDE RECORDS SUMMARY | 2016-07-08 16:58 | XMS REPORT ---
Author Author GENERATED, SYSTEM Organization Unknown Address Unknown Phone Unavailable Care Team Providers Care Apartment Community Manager Name Role Phone UNASSIGNED DOCTOR , DOCTOR PP [phone] Reason For Visit Chief Complaint MIGRAINE Social [...]
--- OUTSIDE RECORDS SUMMARY | 2016-07-08 16:58 | XMS REPORT ---
Author Alison Henry Organization [facility] Address [address] [place], [place] [address] Care Team Providers Care Floor Covering Contractor Name Role Phone Alison Martin Unavailable [phone] PROBLEMS Type Condition ICD9-CM Code ZYH62-BA Code Onset Dates Condition Status SNOMED Code Problem GERD (gastroesophageal reflux disease) K21.9 Active 495506778 Assessment Chronic abdominal pain R10.9 Apr, Active 365349983 Assessment Hematochezia K92.1 Apr, Active 220792652 ALLERGIES Substance Reaction Event Type Date Status Ketorolac Tromethamine Unknown Drug Allergy Apr, Active Azithromycin Unknown Drug Allergy Apr, Active SOCIAL HISTORY No smoking Hx information available PLAN OF CARE VITAL SIGNS Height 62 in 2016-04-14 Weight 252.8 lbs 2016-04-14 BMI 46.23 kg/m2 2016-04-14 Temperature 98.1 degrees Fahrenheit 2016-04-14 Heart Rate 68 /min 2016-04-14 Respiratory Rate 18 /min 2016-04-14 Oximetry 96 % 2016-04-14 Blood pressure systolic 122 mm Hg 2016-04-14 Blood pressure diastolic 74 mm Hg 2016-04-14 MEDICATIONS Medication Instructions Dosage Frequency Start Date End Date Duration Status Omeprazole 10 MG Orally Once a day 2 capsules 24h Active RESULTS No Results PROCEDURES Procedure Date Ordered Related Diagnosis Body Site OFFICE VISIT EST PATIENT LEVEL 3 Apr 14, 2016 IMMUNIZATIONS No Known Immunizations
--- OUTSIDE RECORDS SUMMARY | 2016-07-08 16:58 | XMS REPORT ---
Author Author GENERATED, SYSTEM Organization Unknown Address Unknown Phone Unavailable Care Team Providers Care Carburetor Expert Name Role Phone UNASSIGNED DOCTOR , DOCTOR PP [phone] Reason For Visit Chief Complaint ABD PAIN Social History Functional Status Vital Signs Results Urinalysis from 12/18/2015 1:20 AM*URINE COLOR YELLOW (STRAW/YELL/DK YELL ) *URINE [...] THREADS FEW /LPF A (NEGATIVE /LPF) *BACTERIA MODERATE /HPF A (NEGATIVE /HPF) *SPERM MODERATE /HPF A (NEGATIVE /HPF) Problems Encounter [...]
--- OUTSIDE RECORDS SUMMARY | 2016-07-08 17:00 | XMS REPORT ---
Author Author GENERATED, SYSTEM Organization Unknown Address Unknown Phone Unavailable Care Team Providers Care Corporate Physical Security Supervisor Name Role Phone UNASSIGNED DOCTOR , DOCTOR PP [phone] Reason For Visit Chief Complaint LOWER ABD PAIN Social History Functional Status Vital Signs Results Chemistry from 04/05/2016 8:28 PMSODIUM 140 MMOL/L (136-145 MMOL/L) POTASSIUM 3.6 MMOL/L (3.5-5.1 MMOL/L) CHLORIDE 103 MMOL/L (98-107 MMOL/L) TCO2 28.9 MMOL/L (21.0-32.0 MMOL/L) *ANION GAP 8.1 MMOL/L (8.0-16.0 MMOL/L) BUN 14 MG/DL (7-18 MG/DL) CREATININE 1.14 MG/DL H (0.55-1.02 MG/DL) *BUN/CREATININE RATIO 12.3 (9.1-17.0 ) GLUCOSE 122 MG/DL H (65-99 MG/DL) *GFR EST NON AFR INDIAN 65 ML/MIN *GFR EST AFR AMER 75 ML/MIN CALCIUM 8.8 MG/DL (8.5-10.1 MG/DL) BILIRUBIN TOTAL 0.50 MG/DL (0.20-1.00 MG/DL) TOTAL PROTEIN 7.7 GM/DL (6.4-8.2 GM/DL) ALBUMIN 3.4 GM/DL (3.4-5.0 GM/DL) *GLOBULIN 4.3 GM/DL H (2.3-3.5 GM/DL) *A/G RATIO 0.8 MG/DL L (1.5-2.2 MG/DL) ALK PHOS 54 U/L (46-116 U/L) ALT (SGPT) 20 U/L (16-63 U/L) AST (SGOT) 11 U/L L (15-37 U/L) LIPASE 99 U/L (73-393 U/L) TEST NEGATIVE (NEGATIVE ) Hematology from 04/05/2016 8:28 PMWBC 11.3 X10e3/UL H (3.6-11.2 X10e3/UL) RBC 4.29 X10e6/UL (3.63-4.92 X10e6/UL) HEMOGLOBIN 12.7 G/DL (11.0-14.3 G/DL) HEMATOCRIT 38.1 % (31.2-41.9 %) *MCV 88.8 FL (79.0-98.0 FL) *MCH 29.7 PG (27.0-33.0 PG) *MCHC 33.5 G/DL (32.0-36.0 G/DL) *RDW 14.6 % (12.3-17.0 %) *RDWSD 45.5 (37.1-47.8 ) PLATELET 279 X10e3/UL (159-386 X10e3/UL) *MPV 8.4 FL (7.4-10.4 FL) AUTOMATED DIFF PERFORMED SEGS 61.9 % *LYMPHOCYTES 32.1 % *MONOCYTES 4.7 % *EOSINOPHILS 0.7 % *BASOPHILS 0.6 % *ABSOLUTE NEUTROPHILS 7.00 X10e3/UL (1.80-7.80 X10e3/UL) *ABSOLUTE LYMPHOCYTES 3.60 X10e3/UL H (1.00-3.00 X10e3/UL) *ABSOLUTE MONOCYTES 0.50 X10e3/UL (0.30-1.00 X10e3/UL) *ABSOLUTE EOSINOPHILS 0.10 X10e3/UL (0.00-0.50 X10e3/UL) *ABSOLUTE BASOPHILS 0.10 X10e3/UL (0.00-0.20 X10e3/UL) Urinalysis from 04/05/2016 7:50 PM*URINE COLOR YELLOW (STRAW/YELL/DK YELL ) *URINE APPEARANCE SL CLOUDY A (CLEAR ) URINE PH 7.0 (5.0-8.0 ) URINE SPECIFIC GRAVITY 1.015 (<=1.005->=1.030 [...] CELLS MANY /LPF A (NEG-FEW /LPF) *BACTERIA MODERATE /HPF A (NEGATIVE /HPF) Microbiology from 04/05/2016 7:50 PM* CULTURE URINE (Preliminary Result) Specimen Number: [id number] Sample Collection Date/Time: 04/05/2016 7:50 PM Specimen Source: Urine CULTURE URINE: 5,000 cfu/ml gram positive colony types Problems Encounter [...]
--- OUTSIDE RECORDS SUMMARY | 2016-07-08 17:00 | XMS REPORT ---
Author Author GENERATED, SYSTEM Organization Unknown Address Unknown Phone Unavailable Care Team Providers Care Tool Maker Apprentice Name Role Phone UNASSIGNED DOCTOR , DOCTOR PP [phone] Reason For Visit Chief Complaint No relevant chief complaints exist. Social History Functional Status Vital Signs Results [...]
--- OUTSIDE RECORDS SUMMARY | 2016-07-08 17:00 | XMS REPORT ---
Author Author GENERATED, SYSTEM Organization Unknown Address Unknown Phone Unavailable Care Team Providers Care Garment Sewer Hand Name Role Phone UNASSIGNED DOCTOR , DOCTOR PP [phone] Reason For Visit Chief Complaint FALL LAST NIGHT RT WRIST PAIN Social History Functional Status Vital Signs Results DX Radiology from 04/22/2015 2:51 PMWRIST RIGHT 3 VIEWS History: pain wrist . Technique: 3 view wrist Priors: None. Findings: There is no acute fracture or subluxation. The distal radius and ulna are intact. The carpals are normally aligned. Impression: Unremarkable radiographs of the right wrist. Electronically signed by: Talib Abarca MD Dictated: 04/22/2015 15:33 DX Radiology from 04/22/2015 2:46 PMHAND RIGHT 3 VIEWS History: pain wrist . Technique: 3view hand Priors: None. Findings: There is no fracture. There is no dislocation. The distal radius and ulna appear intact. The carpal bones and joint spaces appear well maintained. Impression: Unremarkable radiographs of the right hand. Electronically signed by: Talib Abarca MD Dictated: 04/22/2015 15:32 Problems Encounter Diagnosis No relevant problems exist. [...]
--- OUTSIDE RECORDS SUMMARY | 2016-07-08 17:01 | XMS REPORT | Referral Summary ---
Author Author [facility] Organization [facility] Address Unknown Phone Unavailable Care Team Providers Care Experienced Truck Driver Name Role Phone Dwaine Rahman Primary Care Physician [phone] Encounter VC GONZALO [id number] Date(s): 06/19/16 - 06/19/16 [facility] [address] [place] [address] [phone] Discharge Diagnosis: Injury of wrist, superficial Discharge Disposition: 01-Home or Self Care Attending Physician: Talha Rosenberg MD Admitting Physician: Talha Rosenberg MD Vital Signs Most recent to 1 oldest [Reference Range]: Temperature Oral 35.9 degC [35.8-37.3 degC] (06/19/16 11:09 AM) Peripheral Pulse 78 bpm Rate [60-100 bpm] (06/19/16 11:09 AM) Respiratory Rate 20 br/min [14-20 br/min] (06/19/16 11:09 AM) Blood Pressure 117/72 mmHg [90-140/60-90 mmHg] (06/19/16 11:09 AM) SpO2 98 % (06/19/16 11:09 AM) Problem List Condition Effective Dates Status [...] 06/14/16 Status: Ordered Non-Formulary Med OTC ACID DOORPERSON OR LUGGAGE PORTER, Oral, TO BRING INFO ON DOS, 0 Refill(s) Start Date: 01/08/16 Status: Ordered traMADol 50 mg oral tablet 50 mg 1 tabs, Oral, q12hr, as needed for pain, X 7 days, # 14 tabs, 0 Refill(s) Start Date: 06/19/16 Stop Date: 06/26/16 Status: Ordered Tylenol Caplet 325 mg, Oral, [...]
--- OUTSIDE RECORDS SUMMARY | 2016-07-08 17:01 | XMS REPORT ---
Author Author GENERATED, SYSTEM Organization Unknown Address Unknown Phone Unavailable Care Team Providers Care Nurse Sitter Name Role Phone UNASSIGNED DOCTOR , DOCTOR PP [phone] Reason For Visit Chief Complaint DENTAL PAIN Social History Functional Status Vital Signs [...]
--- OUTSIDE RECORDS SUMMARY | 2016-07-08 17:01 | XMS REPORT ---
Author Author GENERATED, SYSTEM Organization Unknown Address Unknown Phone Unavailable Care Team Providers Care Soda Dry House Operator Name Role Phone UNASSIGNED DOCTOR , DOCTOR PP [phone] Reason For Visit Chief Complaint ABDOMINAL PAIN Social History Functional Status Vital Signs Results Chemistry from 09/06/2015 1:48 PMSODIUM 141 MMOL/L (136-145 MMOL/L) POTASSIUM 3.7 MMOL/L (3.5-5.1 MMOL/L) CHLORIDE 103 MMOL/L (98-107 MMOL/L) TCO2 33.1 MMOL/L H (21.0-32.0 MMOL/L) *ANION GAP 4.9 MMOL/L L (8.0-16.0 MMOL/L) BUN 12 MG/DL (7-18 MG/DL) CREATININE 0.88 MG/DL (0.55-1.02 MG/DL) *BUN/CREATININE RATIO 13.6 (9.1-17.0 ) GLUCOSE 120 MG/DL H (65-99 MG/DL) *GFR EST NON AFR TONGAN 89 ML/MIN *GFRA EST AFR AMER >90 ML/MIN CALCIUM 8.7 MG/DL (8.5-10.1 MG/DL) BILIRUBIN TOTAL 0.40 MG/DL (0.20-1.00 MG/DL) TOTAL PROTEIN 7.2 GM/DL (6.4-8.2 GM/DL) ALBUMIN 3.4 GM/DL (3.4-5.0 GM/DL) *GLOBULIN 3.8 GM/DL H (2.3-3.5 GM/DL) *A/G RATIO 0.9 MG/DL L (1.5-2.2 MG/DL) ALK PHOS 56 U/L (46-116 U/L) ALT (SGPT) 20 U/L (16-63 U/L) AST (SGOT) 10 U/L L (15-37 U/L) LIPASE 159 U/L (73-393 U/L) Hematology from 09/06/2015 1:48 PMWBC 11.3 X10e3/UL H (3.6-11.2 X10e3/UL) RBC 4.48 X10e6/UL (3.63-4.92 X10e6/UL) HEMOGLOBIN 13.3 G/DL (11.0-14.3 G/DL) HEMATOCRIT 40.0 % (31.2-41.9 %) *MCV 89.3 FL (79.0-98.0 FL) *MCH 29.8 PG (27.0-33.0 PG) *MCHC 33.3 G/DL (32.0-36.0 G/DL) *RDW 13.6 % (12.3-17.0 %) *RDWSD 42.9 (37.1-47.8 ) PLATELET 237 X10e3/UL (159-386 X10e3/UL) *MPV 9.0 FL (7.4-10.4 FL) AUTOMATED DIFF PERFORMED SEGS 67.6 % *LYMPHOCYTES 25.4 % *MONOCYTES 5.1 % *EOSINOPHILS 1.1 % *BASOPHILS 0.8 % *ABSOLUTE NEUTROPHILS 7.60 X10e3/UL (1.80-7.80 X10e3/UL) *ABSOLUTE LYMPHOCYTES 2.90 X10e3/UL (1.00-3.00 X10e3/UL) *ABSOLUTE MONOCYTES 0.60 X10e3/UL (0.30-1.00 X10e3/UL) *ABSOLUTE EOSINOPHILS 0.10 X10e3/UL (0.00-0.50 X10e3/UL) *ABSOLUTE BASOPHILS 0.10 X10e3/UL (0.00-0.20 X10e3/UL) Urinalysis from 09/06/2015 2:15 PM*URINE COLOR YELLOW (STRAW/YELL/DK YELL ) *URINE APPEARANCE SL CLOUDY A (CLEAR ) URINE PH 7.0 (5.0-8.0 ) URINE SPECIFIC GRAVITY 1.020 (<=1.005->=1.030 ) *URINE GLUCOSE NEGATIVE MG/DL (NEGATIVE MG/DL) *URINE BILIRUBIN NEGATIVE (NEGATIVE ) *URINE KETONES NEGATIVE MG/DL (NEGATIVE MG/DL) *URINE BLOOD MODERATE A (NEGATIVE ) *URINE PROTEIN TRACE MG/DL A (NEGATIVE MG/DL) *URINE UROBILINOGEN 0.2 EU/DL (0.2-1.0 EU/DL) *URINE NITRITES NEGATIVE (NEGATIVE ) *URINE LEUKOCYTES NEGATIVE (NEGATIVE ) UR NEGATIVE (NEGATIVE ) *MICROSCOPIC EXAM PERFORMED PERFORMED *RBC URINE 10-25 /HPF A (0-1 /HPF) *SQUAMOUS EP. CELLS MANY /LPF A (NEG-FEW /LPF) *BACTERIA MANY /HPF A (NEGATIVE /HPF) Microbiology from 09/06/2015 1:27 PM* CULTURE URINE (Preliminary Result) Specimen Number: [id number] Sample Collection Date/Time: 09/06/2015 1:27 PM Specimen Source: Urine Clean Catch CULTURE URINE: >100,000 cfu/ml 3 or more gram positive colony types DX Radiology from 09/06/2015 1:54 PMCHEST 1 VIEW History: cough Priors: Chest x-ray 05/14/2015 Findings: The heart size and pulmonary vasculature within normal limits. No consolidating infiltrates are identified. No significant pleural effusion or pneumothorax is seen. Impression: No acute abnormality. Electronically signed by: Guerline Up MD Dictated: 09/06/2015 14:15 CT Scan from 09/06/2015 2:36 PMCT ABD/PELVIS W/CONTRAST History: mid and upper abd pain, more R . Technique: Post contrast images were performed after the administration of 95 milliliters of Isovue intravenous contrast. Priors: CT of abdomen pelvis dated 08/22/2015 Findings: Abdomen Lung bases: Clear Liver: Normal density. No definable mass. Spleen: Normal. Pancreas: No discrete mass or inflammatory process. Gallbladder and biliary tract: The gallbladder is surgically absent. Adrenal glands: Normal. Kidneys: Normal enhancement. No masses. No radiodense stones or hydronephrosis. Urinary Bladder: Normal. Aorta: Normal in caliber. No periaortic lymphadenopathy. Bowel and Mesentery: There is moderate retained fecal material within the colon. No findings of appendicitis. Ascites: None. There is an unchanged small fat containing umbilical hernia Pelvis Lymphadenopathy: None. Reproductive: There has been development of a 2.3 centimeter right ovarian cyst. There are several cervical nabothian cysts noted. Osseous Structures: No suspicious findings. Impression: No evidence of acute abdominopelvic inflammatory process. Constipation. Unchanged small fat containing umbilical hernia. Development of a 2.3 centimeter right ovarian cyst. Electronically signed by: Guerline Up MD Dictated: 09/06/2015 14:53 Problems Encounter Diagnosis No relevant problems exist. [...]
--- OUTSIDE RECORDS SUMMARY | 2016-07-08 17:01 | XMS REPORT ---
Author Author GENERATED, SYSTEM Organization Unknown Address Unknown Phone Unavailable Care Team Providers Care Tassel Snipper Name Role Phone UNASSIGNED DOCTOR , DOCTOR PP [phone] Reason For Visit Chief Complaint ABD PAIN Social History Functional Status Vital Signs Results Chemistry from 06/22/2016 12:05 PMSODIUM 142 MMOL/L (136-145 MMOL/L) POTASSIUM 3.6 MMOL/L (3.5-5.1 MMOL/L) CHLORIDE 106 MMOL/L (98-107 MMOL/L) TCO2 27.0 MMOL/L (21.0-32.0 MMOL/L) *ANION GAP 9.0 MMOL/L (8.0-16.0 MMOL/L) BUN 11 MG/DL (7-18 MG/DL) CREATININE 1.15 MG/DL H (0.55-1.02 MG/DL) *BUN/CREATININE RATIO 9.6 (9.1-17.0 ) GLUCOSE 143 MG/DL H (65-99 MG/DL) *GFR EST NON AFR EQUATORIAL GUINEAN 64 ML/MIN *GFR EST AFR AMER 74 ML/MIN CALCIUM 9.0 MG/DL (8.5-10.1 MG/DL) BILIRUBIN TOTAL 0.70 MG/DL (0.20-1.00 MG/DL) TOTAL PROTEIN 7.9 GM/DL (6.4-8.2 GM/DL) ALBUMIN 3.7 GM/DL (3.4-5.0 GM/DL) *GLOBULIN 4.2 GM/DL H (2.3-3.5 GM/DL) *A/G RATIO 0.9 MG/DL L (1.5-2.2 MG/DL) ALK PHOS 63 U/L (46-116 U/L) ALT (SGPT) 35 U/L (16-63 U/L) AST (SGOT) 14 U/L L (15-37 U/L) LIPASE 100 U/L (73-393 U/L) Hematology from 06/22/2016 12:05 PMWBC 11.1 X10e3/UL (3.6-11.2 X10e3/UL) RBC 4.45 X10e6/UL (3.63-4.92 X10e6/UL) HEMOGLOBIN 13.3 G/DL (11.0-14.3 G/DL) HEMATOCRIT 39.6 % (31.2-41.9 %) *MCV 88.9 FL (79.0-98.0 FL) *MCH 29.8 PG (27.0-33.0 PG) *MCHC 33.5 G/DL (32.0-36.0 G/DL) *RDW 13.9 % (12.3-17.0 %) *RDWSD 43.8 (37.1-47.8 ) PLATELET 286 X10e3/UL (159-386 X10e3/UL) *MPV 8.2 FL (7.4-10.4 FL) AUTOMATED DIFF PERFORMED SEGS 80.9 % *LYMPHOCYTES 14.6 % *MONOCYTES 3.4 % *EOSINOPHILS 0.4 % *BASOPHILS 0.7 % *ABSOLUTE NEUTROPHILS 9.00 X10e3/UL H (1.80-7.80 X10e3/UL) *ABSOLUTE LYMPHOCYTES 1.60 X10e3/UL (1.00-3.00 X10e3/UL) *ABSOLUTE MONOCYTES 0.40 X10e3/UL (0.30-1.00 X10e3/UL) *ABSOLUTE EOSINOPHILS 0.00 X10e3/UL (0.00-0.50 X10e3/UL) *ABSOLUTE BASOPHILS 0.10 X10e3/UL (0.00-0.20 X10e3/UL) DX Radiology from 06/22/2016 12:13 PMABDOMEN 2 VIEW (FLAT/UPRIGHT) History: chronic abdominal pain . Technique: 2 view abdomen Priors: None. Findings: The abdominal bowel gas pattern is unremarkable. There is no free intra-abdominal gas. There are no suspicious calculi. Impression: Unremarkable radiographs of the abdomen. Electronically signed by: Stephan Levy MD Dictated: 06/22/2016 12:27 Problems Encounter Diagnosis No relevant problems exist. [...]
--- OUTSIDE RECORDS SUMMARY | 2016-07-08 17:02 | XMS REPORT ---
Author Author GENERATED, SYSTEM Organization Unknown Address Unknown Phone Unavailable Care Team Providers Care Personalization Specialist Name Role Phone UNASSIGNED DOCTOR , DOCTOR PP [phone] Reason For Visit Chief Complaint UMBILICAL INCISION DRAINAGE Social History Functional Status Vital Signs Results Chemistry from 02/01/2016 3:57 PMSODIUM 140 MMOL/L (136-145 MMOL/L) POTASSIUM 5.0 MMOL/L (3.5-5.1 MMOL/L) CHLORIDE 105 MMOL/L (98-107 MMOL/L) TCO2 25.9 MMOL/L (21.0-32.0 MMOL/L) *ANION GAP 9.1 MMOL/L (8.0-16.0 MMOL/L) BUN 15 MG/DL (7-18 MG/DL) CREATININE 0.95 MG/DL (0.55-1.02 MG/DL) *BUN/CREATININE RATIO 15.8 (9.1-17.0 ) GLUCOSE 83 MG/DL (65-99 MG/DL) *GFR EST NON AFR EQUATORIAL GUINEAN 81 ML/MIN *GFR EST AFR AMER >90 ML/MIN CALCIUM 10.0 MG/DL (8.5-10.1 MG/DL) Hematology from 02/01/2016 3:25 PMWBC 10.8 X10e3/UL (3.6-11.2 X10e3/UL) RBC 4.15 X10e6/UL (3.63-4.92 X10e6/UL) HEMOGLOBIN 12.5 G/DL (11.0-14.3 G/DL) HEMATOCRIT 37.1 % (31.2-41.9 %) *MCV 89.4 FL (79.0-98.0 FL) *MCH 30.1 PG (27.0-33.0 PG) *MCHC 33.7 G/DL (32.0-36.0 G/DL) *RDW 14.0 % (12.3-17.0 %) *RDWSD 44.2 (37.1-47.8 ) PLATELET 265 X10e3/UL (159-386 X10e3/UL) *MPV 9.4 FL (7.4-10.4 FL) AUTOMATED DIFF PERFORMED SEGS 63.7 % *LYMPHOCYTES 29.4 % *MONOCYTES 5.1 % *EOSINOPHILS 0.9 % *BASOPHILS 0.9 % *ABSOLUTE NEUTROPHILS 6.90 X10e3/UL (1.80-7.80 X10e3/UL) *ABSOLUTE LYMPHOCYTES 3.20 X10e3/UL H (1.00-3.00 X10e3/UL) *ABSOLUTE MONOCYTES 0.60 X10e3/UL (0.30-1.00 X10e3/UL) *ABSOLUTE EOSINOPHILS 0.10 X10e3/UL (0.00-0.50 X10e3/UL) *ABSOLUTE BASOPHILS 0.10 X10e3/UL (0.00-0.20 X10e3/UL) Urinalysis from 02/01/2016 2:35 PM*URINE COLOR STRAW (STRAW/YELL/DK YELL ) *URINE APPEARANCE CLOUDY A (CLEAR ) URINE PH 7.0 [...] *MUCOUS THREADS FEW /LPF A (NEGATIVE /LPF) *AMORP. PHOS PASTOR MODERATE /HPF (NEGATIVE /HPF) Microbiology from 02/01/2016 2:15 PM* CULTURE WOUND (Preliminary Result) Specimen Number: [id number] Sample Collection Date/Time: 02/01/2016 2:15 PM Specimen Source: Abdomen CULTURE WOUND: Gram-negative bacillus Light growth *GRAM STAIN: Rare WBC's No organisms seen * *GRAM STAIN Specimen Number: [id number] Sample Collection Date/Time: 02/01/2016 2:15 PM Specimen Source: Abdomen *GRAM STAIN: Rare WBC's No organisms seen CULTURE WOUND: Gram-negative bacillus Light growth CT Scan from 02/01/2016 4:27 PMCT ABD/PELVIS W/O CONTRAST History: abd pain . Recent umbilical hernia repair with drainage from abdominal abscess. . Priors: 11/21/2015 Findings: Abdomen Lung bases: Clear Liver: Normal density. No definable mass. Spleen: Normal. Pancreas: No discrete mass or inflammatory process. Gallbladder and biliary tract: The gallbladder surgically absent. Adrenal glands: Normal. Kidneys: No nephrolithiasis. No Hydronephrosis. Urinary Bladder: Normal. Aorta: Normal in caliber. No periaortic lymphadenopathy. Bowel and Mesentery: There is mild constipation. No findings of appendicitis. Ascites: None. Since prior study there postsurgical changes of umbilical hernia repair. There is a small fluid collection the anterior peritoneal cavity adjacent to the umbilicus measuring 3.2 cm craniocaudal by 2.5 cm transverse by 1.2 cm AP consistent with a postoperative fluid collection such as hematoma, seroma or abscess. . Pelvis Lymphadenopathy: None. Reproductive: Unremarkable. Osseous Structures: No suspicious findings. Impression: Small fluid collection in the anterior abdominal cavity just posterior to the umbilicus consistent postsurgical fluid collection such as hematoma, seroma or abscess. Electronically signed by: Stephan Levy MD Dictated: 02/02/2016 11:12 Problems Encounter Diagnosis No relevant problems exist. [...]
--- OUTSIDE RECORDS SUMMARY | 2016-07-08 17:02 | XMS REPORT ---
Author Author [place], [facility] - Organization Unknown Address Unknown Phone Unavailable Allergies, Adverse Reactions, Alerts * azithromycin causes unknown. * No Latex Allergy. * No IV Contrast Allergy. Problems No relevant problems exist. Procedures No relevant procedures performed. Medication Medication reconciliation has not been performed. Results LAB--CHEMISTRY from 02/23/2013 6:01 AMPregnancy, Urine Negative (Negative ) LAB--CHEMISTRY from 02/23/2013 6:16 AMAnion Gap 8 (3-20 ) Albumin 3.8 g/dL (3.5-4.8 g/dL) Alkaline Phosphatase 52 U/L (26-104 U/L) ALT (SGPT) 35 U/L (14-54 U/L) AST (SGOT) 50 U/L H (15-41 U/L) Bilirubin Total 0.8 mg/dL (0.2-1.2 mg/dL) BUN 15 mg/dL (4-20 mg/dL) Calcium 9.0 mg/dL (8.6-10.0 mg/dL) Chloride 105 mEq/L (99-109 mEq/L) CO2 25 mEq/L (22-32 mEq/L) Creatinine 0.97 mg/dL (0.44-1.03 mg/dL) eGFR >60 (>60- ) Globulin 3.3 g/dL (1.9-4.3 g/dL) Glucose 108 mg/dL H (70-100 mg/dL) Potassium 3.7 mEq/L (3.6-5.1 mEq/L) Sodium 138 mEq/L (136-144 mEq/L) Protein 7.1 g/dL (6.1-7.9 g/dL) Lipase 23 (8-48 ) LAB--HEMATOLOGY from 02/23/2013 6:16 AMAbsolute Basophils 0.02 THOUS (0.00-0.20 THOUS) Absolute Eosinophils 0.03 THOUS (0.00-0.50 THOUS) Absolute Lymphocytes 2.51 THOUS (0.80-3.30 THOUS) Absolute Monocytes 0.44 THOUS (0.30-1.00 THOUS) Absolute Neutrophils 7.68 THOUS H (1.90-7.00 THOUS) HCT 40.6 % (37.0-47.0 %) HGB 13.7 g/dl (12.0-16.0 g/dl) MCH 30.5 pg (27.0-32.0 pg) MCHC 33.7 g/dL (32.0-36.0 g/dL) MCV 90.4 fL (82.0-99.0 fL) MPV 11.9 fL (9.4-12.4 fL) Platelet Count 241 K/uL (150-400 K/uL) RBC 4.49 M/uL (4.00-5.20 M/uL) RDW 13.3 % (11.5-14.5 %) WBC 10.7 K/uL (4.8-10.8 K/uL) Basophils 0 % (0-2 %) Eosinophils 0 % (0-4 %) Immature Granulocytes 0.5 % (0.0-1.0 %) Lymphocytes 23 % (20-46 %) Monocytes 4 % (4-11 %) Nucleated RBC Automated 0.0 /100 WBC (0 /100 WBC) Neutrophils 72 % (51-75 %) LAB--URINE TESTS from 02/23/2013 6:01 AMAppearance Clear Bilirubin Negative (Negative ) Blood Pos 2+ A (Negative ) Color Yellow Glucose Negative (Negative ) Ketones, Urine Negative (Negative ) Leukocytes Esterase Negative (Negative ) Nitrites Negative (Negative ) pH, Urine 6.5 (5.0-8.0 ) Protein Negative (Negative ) Specific [place] 1.013 (1.003-1.030 ) Collection Type: Clean Catch Urobilinogen Negative mg/dL (-<1.0 mg/dL) Bacteria Rare Epithelial Cells 2-5 /HPF Mucus Present RBC 2-5 /HPF (0-2 /HPF)
--- OUTSIDE RECORDS SUMMARY | 2016-07-08 17:03 | XMS REPORT ---
Author Author GENERATED, SYSTEM Organization Unknown Address Unknown Phone Unavailable Care Team Providers Care Type Rolling Machine Operator Name Role Phone UNASSIGNED DOCTOR , DOCTOR PP [phone] Reason For Visit Chief Complaint ABDOMINAL PAIN/ SYNCOPE Social History Functional Status Vital Signs Results [...]
--- OUTSIDE RECORDS SUMMARY | 2016-07-08 17:03 | XMS REPORT ---
Author Author GENERATED, SYSTEM Organization Unknown Address Unknown Phone Unavailable Care Team Providers Care Slide Attendant Name Role Phone UNASSIGNED DOCTOR , DOCTOR PP [phone] Reason For Visit Chief Complaint ASTHMA, NAUSEA, CONGESTION, FEVER Social History Functional Status Vital Signs Results [...]
--- OUTSIDE RECORDS SUMMARY | 2016-07-08 17:03 | XMS REPORT ---
Author Author GENERATED, SYSTEM Organization Unknown Address Unknown Phone Unavailable Care Team Providers Care Community Outreach Manager Name Role Phone UNASSIGNED DOCTOR , DOCTOR PP [phone] Reason For Visit Chief Complaint ABD PAIN [...]
--- OUTSIDE RECORDS SUMMARY | 2016-07-08 17:04 | XMS REPORT ---
Author Author GENERATED, SYSTEM Organization Unknown Address Unknown Phone Unavailable Care Team Providers Care Home Security Alarm Installer Name Role Phone UNASSIGNED DOCTOR , DOCTOR PP [phone] Reason For Visit Chief Complaint RECTAL BLEEDING,ABDOMINAL PAIN Social History Functional Status Vital Signs Results Chemistry from 09/16/2015 3:09 PMSODIUM 139 MMOL/L (136-145 MMOL/L) POTASSIUM 3.9 MMOL/L (3.5-5.1 MMOL/L) CHLORIDE 103 MMOL/L (98-107 MMOL/L) TCO2 28.0 MMOL/L (21.0-32.0 MMOL/L) *ANION GAP 8.0 MMOL/L (8.0-16.0 MMOL/L) BUN 12 MG/DL (7-18 MG/DL) CREATININE 0.95 MG/DL (0.55-1.02 MG/DL) *BUN/CREATININE RATIO 12.6 (9.1-17.0 ) GLUCOSE 109 MG/DL H (65-99 MG/DL) *GFR EST NON AFR IRANIAN 81 ML/MIN *GFRA EST AFR AMER >90 ML/MIN CALCIUM 9.0 MG/DL (8.5-10.1 MG/DL) BILIRUBIN TOTAL 0.70 MG/DL (0.20-1.00 MG/DL) TOTAL PROTEIN 7.7 GM/DL (6.4-8.2 GM/DL) ALBUMIN 3.6 GM/DL (3.4-5.0 GM/DL) *GLOBULIN 4.1 GM/DL H (2.3-3.5 GM/DL) *A/G RATIO 0.9 MG/DL L (1.5-2.2 MG/DL) ALK PHOS 90 U/L (46-116 U/L) ALT (SGPT) 177 U/L H (16-63 U/L) AST (SGOT) 91 U/L H (15-37 U/L) Chemistry from 09/16/2015 2:41 PM*COCAINE NEGATIVE (NEG <150 ) *PCP NEGATIVE (NEG <25 ) *OXYCODONE POSITIVE A (NEG <100 ) *PROPOXYPHENE (NORPROPOXYPHENE) NEGATIVE (NEG <300 ) *CANNABINOIDS NEGATIVE (NEG <50 ) *BENZODIAZEINE NEGATIVE (NEG <150 ) *AMPHETAMINE NEGATIVE (NEG <500 ) *BARBITURATES NEGATIVE (NEG <200 ) *METHAMPHETAMINES NEGATIVE (NEG <500 ) *METHADONE (UR) NEGATIVE (NEG <200 ) *OPIATES POSITIVE A (NEG <100 ) *TRICYCLICS NEGATIVE (NEG <300 ) Hematology from 09/16/2015 3:09 PMWBC 8.7 X10e3/UL (3.6-11.2 X10e3/UL) RBC 4.58 X10e6/UL (3.63-4.92 X10e6/UL) HEMOGLOBIN 13.6 G/DL (11.0-14.3 G/DL) HEMATOCRIT 41.0 % (31.2-41.9 %) *MCV 89.5 FL (79.0-98.0 FL) *MCH 29.6 PG (27.0-33.0 PG) *MCHC 33.1 G/DL (32.0-36.0 G/DL) *RDW 13.8 % (12.3-17.0 %) *RDWSD 43.3 (37.1-47.8 ) PLATELET 242 X10e3/UL (159-386 X10e3/UL) *MPV 8.7 FL (7.4-10.4 FL) AUTOMATED DIFF PERFORMED SEGS 67.7 % *LYMPHOCYTES 25.8 % *MONOCYTES 5.0 % *EOSINOPHILS 0.8 % *BASOPHILS 0.7 % *ABSOLUTE NEUTROPHILS 5.90 X10e3/UL (1.80-7.80 X10e3/UL) *ABSOLUTE LYMPHOCYTES 2.20 X10e3/UL (1.00-3.00 X10e3/UL) *ABSOLUTE MONOCYTES 0.40 X10e3/UL (0.30-1.00 X10e3/UL) *ABSOLUTE EOSINOPHILS 0.10 X10e3/UL (0.00-0.50 X10e3/UL) *ABSOLUTE BASOPHILS 0.10 X10e3/UL (0.00-0.20 X10e3/UL) Urinalysis from 09/16/2015 3:09 PM*EOSINOPHILS 0.8 % Urinalysis from 09/16/2015 2:41 PM*URINE COLOR YELLOW (STRAW/YELL/DK YELL ) *URINE APPEARANCE CLEAR (CLEAR ) URINE PH 8.5 A (5.0-8.0 ) URINE SPECIFIC GRAVITY 1.020 (<=1.005->=1.030 ) *URINE GLUCOSE NEGATIVE MG/DL (NEGATIVE MG/DL) *URINE BILIRUBIN NEGATIVE (NEGATIVE ) *URINE KETONES NEGATIVE MG/DL (NEGATIVE MG/DL) *URINE BLOOD MODERATE A (NEGATIVE ) *URINE PROTEIN NEGATIVE MG/DL (NEGATIVE MG/DL) *URINE UROBILINOGEN 0.2 EU/DL (0.2-1.0 EU/DL) *URINE NITRITES NEGATIVE (NEGATIVE ) *URINE LEUKOCYTES NEGATIVE (NEGATIVE ) UR NEGATIVE (NEGATIVE ) *MICROSCOPIC EXAM PERFORMED PERFORMED *RBC URINE 5-10 /HPF A (0-1 /HPF) *SQUAMOUS EP. CELLS MANY /LPF A (NEG-FEW /LPF) *BACTERIA FEW /HPF A (NEGATIVE /HPF) Coagulation from 09/16/2015 3:09 PM*PROTHROMBIN TIME 10.0 SECONDS (9.4-11.5 SECONDS) *INR 1.0 (0.9-1.1 ) Body Fluids from 09/16/2015 2:45 PMFECAL OCCULT BLOOD 1 (Hemoccult) NEGATIVE ( NEGATIVE ) CT Scan from 09/16/2015 3:56 PMCT ABD/PELVIS W/CONTRAST History: Bilateral lower quadrant abdominal pain with blood in stool. Technique: Post contrast images were performed after the administration of 95 milliliters of Isovue intravenous contrast. Priors: 09/06/2015 Findings: Abdomen Lung bases: Clear Liver: Normal density. No definable mass. Spleen: Normal. Pancreas: No discrete mass or inflammatory process. Gallbladder and biliary tract: There are surgical clips in gallbladder fossa. Adrenal glands: Normal. Kidneys: Normal enhancement. No masses. No radiodense stones or hydronephrosis. Urinary Bladder: Normal. Aorta: Normal in caliber. No periaortic lymphadenopathy. Bowel and Mesentery: There is mild constipation. No findings of appendicitis. Ascites: None. There is a fat containing umbilical hernia which appears uncomplicated. Pelvis Lymphadenopathy: None. Reproductive: Unremarkable. Osseous Structures: No suspicious findings. Impression: Mild constipation. Electronically signed by: Stephan Levy MD Dictated: 09/17/2015 08:29 Problems Encounter Diagnosis No relevant problems exist. [...]
--- OUTSIDE RECORDS SUMMARY | 2016-07-08 17:12 | XMS REPORT ---
Author Author GENERATED, SYSTEM Organization Unknown Address Unknown Phone Unavailable Care Team Providers Care [place] Machine Operator Name Role Phone UNASSIGNED DOCTOR , DOCTOR PP [phone] Reason For Visit Chief Complaint ABDOMINAL PAIN [...] (65-99 MG/DL) *GFR EST NON AFR AFGHAN 85 ML/MIN *GFRA EST AFR AMER >90 [...]
--- OUTSIDE RECORDS SUMMARY | 2016-07-08 17:12 | XMS REPORT ---
Author Author GENERATED, SYSTEM Organization Unknown Address Unknown Phone Unavailable Care Team Providers Care Power House Control Room Operator Name Role Phone UNASSIGNED DOCTOR , DOCTOR PP [phone] Reason For Visit Chief Complaint CHRONIC MIGRAINE [...]
--- OUTSIDE RECORDS SUMMARY | 2016-07-08 17:13 | XMS REPORT ---
Author Author GENERATED, SYSTEM Organization Unknown Address Unknown Phone Unavailable Care Team Providers Care Wafer Machine Operator Name Role Phone UNASSIGNED DOCTOR , DOCTOR PP [phone] Reason For Visit Chief Complaint STOMACH PAIN, [...]
--- OUTSIDE RECORDS SUMMARY | 2016-07-08 17:13 | XMS REPORT ---
Author Author GENERATED, SYSTEM Organization Unknown Address Unknown Phone Unavailable Care Team Providers Care Machine Driller Name Role Phone UNASSIGNED DOCTOR , DOCTOR PP [phone] Reason For Visit Chief Complaint ABDOMINAL PAIN, [...] MG/DL (65-99 MG/DL) GFR EST NON AFR ANDORRAN >90 ML/MIN GFRA EST AFR AMER >90 [...]
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
--- OUTSIDE RECORDS SUMMARY | 2016-07-08 17:13 | XMS REPORT ---
Author Author GENERATED, SYSTEM Organization Unknown Address Unknown Phone Unavailable Care Team Providers Care Hand Packer/Packager Name Role Phone UNASSIGNED DOCTOR , DOCTOR PP [phone] Reason For Visit Chief Complaint VOMITING BLOOD [...] MG/DL (65-99 MG/DL) *GFR EST NON AFR MAURITIAN 67 ML/MIN *GFRA EST AFR AMER 78 [...]
--- OUTSIDE RECORDS SUMMARY | 2016-07-08 17:14 | XMS REPORT ---
Author Author GENERATED, SYSTEM Organization Unknown Address Unknown Phone Unavailable Care Team Providers Care Employee Services Manager Name Role Phone UNASSIGNED DOCTOR , DOCTOR PP [phone] Reason For Visit Chief Complaint MIGRAINE Social [...]
[2016-07-08] MEDS ORDERED: ORPHENADRINE 60mg/2ml INJECTION IM ONE (17:15)
--- OUTSIDE RECORDS SUMMARY | 2016-07-08 17:15 | XMS REPORT ---
Author Author GENERATED, SYSTEM Organization Unknown Address Unknown Phone Unavailable Care Team Providers Care Sewing Department Supervisor Name Role Phone UNASSIGNED DOCTOR , DOCTOR PP [phone] Reason For Visit Chief Complaint ABDOMINAL PAIN [...]
--- OUTSIDE RECORDS SUMMARY | 2016-07-08 17:15 | XMS REPORT ---
Author Author GENERATED, SYSTEM Organization Unknown Address Unknown Phone Unavailable Care Team Providers Care Electrodynamicist Name Role Phone UNASSIGNED DOCTOR , DOCTOR PP [phone] Reason For Visit Chief Complaint RIB PAIN [...]
--- OUTSIDE RECORDS SUMMARY | 2016-07-08 17:16 | XMS REPORT ---
Author Author GENERATED, SYSTEM Organization Unknown Address Unknown Phone Unavailable Care Team Providers Care [place] Actor Name Role Phone UNASSIGNED DOCTOR , DOCTOR PP [phone] Reason For Visit Chief Complaint VOMITING, DIARRHEA [...] MG/DL (65-99 MG/DL) *GFR EST NON AFR ISRAELI 71 ML/MIN *GFR EST AFR AMER 82 [...]
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
--- OUTSIDE RECORDS SUMMARY | 2016-07-08 17:16 | XMS REPORT ---
Author Author GENERATED, SYSTEM Organization Unknown Address Unknown Phone Unavailable Care Team Providers Care Heavy Duty Custodian Name Role Phone UNASSIGNED DOCTOR , DOCTOR PP [phone] Reason For Visit Chief Complaint FALL, L [...]
--- OUTSIDE RECORDS SUMMARY | 2016-07-08 17:17 | XMS REPORT ---
Author Author GENERATED, SYSTEM Organization Unknown Address Unknown Phone Unavailable Care Team Providers Care Rail Project Engineer Name Role Phone UNASSIGNED DOCTOR , DOCTOR PP [phone] Reason For Visit Chief Complaint INFLUENZA LIKE [...]
--- OUTSIDE RECORDS SUMMARY | 2016-07-08 17:17 | XMS REPORT ---
Author Author GENERATED, SYSTEM Organization Unknown Address Unknown Phone Unavailable Care Team Providers Care Service Supervisor Name Role Phone UNASSIGNED DOCTOR , DOCTOR PP [phone] Reason For Visit Chief Complaint LT FOOT [...]
--- OUTSIDE RECORDS SUMMARY | 2016-07-08 17:17 | XMS REPORT ---
Author Author GENERATED, SYSTEM Organization Unknown Address Unknown Phone Unavailable Care Team Providers Care Certified Court Interpreter Name Role Phone UNASSIGNED DOCTOR , DOCTOR PP [phone] Reason For Visit Chief Complaint CEPHALGIA Social [...]
--- OUTSIDE RECORDS SUMMARY | 2016-07-08 17:17 | XMS REPORT ---
Author Author GENERATED, SYSTEM Organization Unknown Address Unknown Phone Unavailable Care Team Providers Care Retread Supervisor Name Role Phone UNASSIGNED DOCTOR , DOCTOR PP [phone] Reason For Visit Chief Complaint MIGRAINE, PRESSURE [...]
--- OUTSIDE RECORDS SUMMARY | 2016-07-08 17:17 | XMS REPORT ---
Author Author GENERATED, SYSTEM Organization Unknown Address Unknown Phone Unavailable Care Team Providers Care Pullman Clerk Name Role Phone UNASSIGNED DOCTOR , DOCTOR PP [phone] Reason For Visit Chief Complaint MIGRAINE,LEFT AMA [...]
--- OUTSIDE RECORDS SUMMARY | 2016-07-08 17:17 | XMS REPORT ---
Author Author GENERATED, SYSTEM Organization Unknown Address Unknown Phone Unavailable Care Team Providers Care Design Editor Name Role Phone UNASSIGNED DOCTOR , DOCTOR PP [phone] Reason For Visit Chief Complaint STOMACH PAIN [...] MG/DL (65-99 MG/DL) GFR EST NON AFR QATARI 83 ML/MIN GFRA EST AFR AMER >90 [...] PM* CULTURE URINE (Preliminary Result) Specimen Number: [id number] Sample Collection Date/Time: 07/21/2014 4:35 PM Specimen Source: Urine DX Radiology from 07/21/2014 5:00 PMABDOMEN 2 VIEW (FLAT/UPRIGHT) (Preliminary Result)DATE OF EXAM: Jul 21 2014 5:37PM Proc: DG [id number] - ABDOMEN 2 VIEW (FLAT/UPRIGHT) CPT Code(s): 46104-; ; ; INDICATION / CLINICAL HISTORY: Abdominal [...]
--- OUTSIDE RECORDS SUMMARY | 2016-07-08 17:17 | XMS REPORT ---
Author Author GENERATED, SYSTEM Organization Unknown Address Unknown Phone Unavailable Care Team Providers Care Detective Precinct Name Role Phone UNASSIGNED DOCTOR , DOCTOR PP [phone] Reason For Visit Chief Complaint CONGESTION, COUGH, [...] H (65-99 MG/DL) GFR EST NON AFR [place] 71 ML/MIN GFRA EST AFR AMER 82 [...] PM* CULTURE URINE (Preliminary Result) Specimen Number: [id number] Sample Collection Date/Time: 12/09/2014 12:15 PM Specimen Source: Urine Clean Catch CULTURE URINE: >100,000 cfu/ml 3 or more gram positive colony types Microbiology from 12/09/2014 12:00 PM* CULTURE GROUP A STREP Specimen Number: [id number] Sample Collection Date/Time: 12/09/2014 12:00 PM Specimen Source: Throat GROUP A STREP, RAPID AG: NEGATIVE FOR GROUP A STREP CULTURE GROUP A STREP: No growth of Streptococcus pyogenes * GROUP A STREP, RAPID AG Specimen Number: [id number] Sample Collection Date/Time: 12/09/2014 12:00 PM Specimen [...]
--- OUTSIDE RECORDS SUMMARY | 2016-07-08 17:17 | XMS REPORT ---
Author Author GENERATED, SYSTEM Organization Unknown Address Unknown Phone Unavailable Care Team Providers Care Elementary School Science Teacher Name Role Phone UNASSIGNED DOCTOR , DOCTOR PP [phone] Reason For Visit Chief Complaint INCISION PAIN, [...]
--- OUTSIDE RECORDS SUMMARY | 2016-07-08 17:18 | XMS REPORT ---
Author Author GENERATED, SYSTEM Organization Unknown Address Unknown Phone Unavailable Care Team Providers Care Cable Engineer Outside Plant Name Role Phone UNASSIGNED DOCTOR , DOCTOR PP [phone] Reason For Visit Chief Complaint ABD PAIN [...]
--- OUTSIDE RECORDS SUMMARY | 2016-07-08 17:18 | XMS REPORT ---
Author Author GENERATED, SYSTEM Organization Unknown Address Unknown Phone Unavailable Care Team Providers Care Sewing Machines Salesperson Name Role Phone UNASSIGNED DOCTOR , DOCTOR PP [phone] Reason For Visit Chief Complaint FOOT PAIN [...]
--- OUTSIDE RECORDS SUMMARY | 2016-07-08 17:18 | XMS REPORT ---
Author Author GENERATED, SYSTEM Organization Unknown Address Unknown Phone Unavailable Care Team Providers Care Panel Flow Machine Operator Name Role Phone UNASSIGNED DOCTOR , DOCTOR PP [phone] Reason For Visit Chief Complaint CHEST PAIN [...]
--- OUTSIDE RECORDS SUMMARY | 2016-07-08 17:19 | XMS REPORT ---
Author Author GENERATED, SYSTEM Organization Unknown Address Unknown Phone Unavailable Care Team Providers Care Warp Coiler Name Role Phone UNASSIGNED DOCTOR , DOCTOR PP [phone] Reason For Visit Chief Complaint ABDOMINAL PAIN [...] H (65-99 MG/DL) *GFR EST NON AFR GAMBIAN 81 ML/MIN *GFR EST AFR AMER >90 [...]
--- OUTSIDE RECORDS SUMMARY | 2016-07-08 17:20 | XMS REPORT ---
Author Author GENERATED, SYSTEM Organization Unknown Address Unknown Phone Unavailable Care Team Providers Care Dietitian Teacher Name Role Phone UNASSIGNED DOCTOR MD GRUPO DOCTOR PP [phone] Reason For Visit Chief Complaint WRIST SPRAIN [...]
--- OUTSIDE RECORDS SUMMARY | 2016-07-08 17:20 | XMS REPORT ---
Author Author GENERATED, SYSTEM Organization Unknown Address Unknown Phone Unavailable Care Team Providers Care Sales And Marketing Manager Name Role Phone UNASSIGNED DOCTOR , DOCTOR PP [phone] Reason For Visit Chief Complaint ABDONIMAL PAIN, [...]
--- OUTSIDE RECORDS SUMMARY | 2016-07-08 17:20 | XMS REPORT ---
Author Author GENERATED, SYSTEM Organization Unknown Address Unknown Phone Unavailable Care Team Providers Care Form Tamper Name Role Phone UNASSIGNED DOCTOR , DOCTOR PP [phone] Reason For Visit Chief Complaint NECK/HEAD PAIN [...]
--- OUTSIDE RECORDS SUMMARY | 2016-07-08 17:21 | XMS REPORT ---
Author Author GENERATED, SYSTEM Organization Unknown Address Unknown Phone Unavailable Care Team Providers Care Residential Real Estate Sales Manager Name Role Phone UNASSIGNED DOCTOR , DOCTOR PP [phone] Reason For Visit Chief Complaint CHEST PAIN [...] MG/DL (65-99 MG/DL) *GFR EST NON AFR SPANISH 66 ML/MIN *GFRA EST AFR AMER 77 [...]
--- OUTSIDE RECORDS SUMMARY | 2016-07-08 17:21 | XMS REPORT ---
Author Author GENERATED, SYSTEM Organization Unknown Address Unknown Phone Unavailable Care Team Providers Care Draughtsman Name Role Phone UNASSIGNED DOCTOR , DOCTOR PP [phone] Reason For Visit Chief Complaint ABDM PAIN, [...]
--- OUTSIDE RECORDS SUMMARY | 2016-07-08 17:21 | XMS REPORT ---
Author Author GENERATED, SYSTEM Organization Unknown Address Unknown Phone Unavailable Care Team Providers Care Plant Anatomy Teacher Name Role Phone UNASSIGNED DOCTOR , DOCTOR PP [phone] Reason For Visit Chief Complaint BACTERIAL VAGINOSIS [...] H (65-99 MG/DL) *GFR EST NON AFR [place]IZEN [place] 70 ML/MIN *GFR EST AFR AMER 81 [...] 12:30 PM* *REBECA- FUNGAL SMEAR Specimen Number: [id number] Sample Collection Date/Time: 03/11/2016 12:30 PM Specimen Source: Cervix *WET PREP: No Trichomonas seen Clue cells seen *REBECA- FUNGAL SMEAR: No yeast or fungal elements seen * *WET PREP Specimen Number: [id number] Sample Collection Date/Time: 03/11/2016 12:30 PM Specimen Source: Cervix *REBECA- FUNGAL SMEAR: No yeast or fungal elements seen *WET PREP: No Trichomonas seen Clue cells seen Microbiology from 03/11/2016 12:05 PM* CULTURE URINE (Preliminary Result) Specimen Number: [id number] Sample Collection Date/Time: 03/11/2016 12:05 PM Specimen [...]
--- OUTSIDE RECORDS SUMMARY | 2016-07-08 17:21 | XMS REPORT ---
Author Author GENERATED, SYSTEM Organization Unknown Address Unknown Phone Unavailable Care Team Providers Care Manager Of Internal Audit Name Role Phone UNASSIGNED DOCTOR , DOCTOR PP [phone] Reason For Visit Chief Complaint LT FOOT [...]
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
--- OUTSIDE RECORDS SUMMARY | 2016-07-08 17:22 | XMS REPORT ---
Author Author GENERATED, SYSTEM Organization Unknown Address Unknown Phone Unavailable Care Team Providers Care Incubator Tender Name Role Phone UNASSIGNED DOCTOR , DOCTOR PP [phone] Reason For Visit Chief Complaint BLOODY STOOLS [...]
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
--- OUTSIDE RECORDS SUMMARY | 2016-07-08 17:23 | XMS REPORT ---
Author Author GENERATED, SYSTEM Organization Unknown Address Unknown Phone Unavailable Care Team Providers Care Sampling Expert Name Role Phone UNASSIGNED DOCTOR , DOCTOR PP [phone] Reason For Visit Chief Complaint ADOMINAL PAIN [...] MG/DL (65-99 MG/DL) GFR EST NON AFR CYPRIOT 67 ML/MIN GFRA EST AFR AMER 77 [...] - CT ABD/PELVIS W/ CONTRAST CPT Code(s): 33679-; ; ; INDICATION / CLINICAL HISTORY: Abdomen [...]
--- OUTSIDE RECORDS SUMMARY | 2016-07-08 17:23 | XMS REPORT ---
Author Author GENERATED, SYSTEM Organization Unknown Address Unknown Phone Unavailable Care Team Providers Care Sales Planning Coordinator Name Role Phone UNASSIGNED DOCTOR , DOCTOR PP [phone] Reason For Visit Chief Complaint ABD PAIN [...]
--- OUTSIDE RECORDS SUMMARY | 2016-07-08 17:23 | XMS REPORT ---
Author Author GENERATED, SYSTEM Organization Unknown Address Unknown Phone Unavailable Care Team Providers Care Nursing Assoc Name Role Phone UNASSIGNED DOCTOR , DOCTOR PP [phone] Reason For Visit Chief Complaint MIGRAINE Social [...]
--- OUTSIDE RECORDS SUMMARY | 2016-07-08 17:23 | XMS REPORT ---
Author Author GENERATED, SYSTEM Organization Unknown Address Unknown Phone Unavailable Care Team Providers Care Agricultural Chemicals Inspector Name Role Phone UNASSIGNED DOCTOR , DOCTOR PP [phone] Reason For Visit Chief Complaint ABD PAIN [...] MG/DL (65-99 MG/DL) *GFR EST NON AFR [place] 68 ML/MIN *GFR EST AFR AMER 78 [...]
--- OUTSIDE RECORDS SUMMARY | 2016-07-08 17:24 | XMS REPORT ---
Author Author GENERATED, SYSTEM Organization Unknown Address Unknown Phone Unavailable Care Team Providers Care Customer Solutions Supervisor Name Role Phone UNASSIGNED DOCTOR , DOCTOR PP [phone] Reason For Visit Chief Complaint MIGRAINE, ABD [...]
--- OUTSIDE RECORDS SUMMARY | 2016-07-08 17:24 | XMS REPORT ---
Author Author GENERATED, SYSTEM Organization Unknown Address Unknown Phone Unavailable Care Team Providers Care Grooming Assistant Name Role Phone UNASSIGNED DOCTOR , DOCTOR PP [phone] Reason For Visit Chief Complaint FALL, ABD [...]
--- OUTSIDE RECORDS SUMMARY | 2016-07-08 17:24 | XMS REPORT ---
Author Author GENERATED, SYSTEM Organization Unknown Address Unknown Phone Unavailable Care Team Providers Care Head Of Talent Management Name Role Phone UNASSIGNED DOCTOR , DOCTOR PP [phone] Reason For Visit Chief Complaint MIGRAINE Social [...]
--- OUTSIDE RECORDS SUMMARY | 2016-07-08 17:24 | XMS REPORT ---
Author Author GENERATED, SYSTEM Organization Unknown Address Unknown Phone Unavailable Care Team Providers Care Small Business Director Name Role Phone UNASSIGNED DOCTOR , DOCTOR PP [phone] Reason For Visit Chief Complaint INCISION PAIN [...]
--- OUTSIDE RECORDS SUMMARY | 2016-07-08 17:25 | XMS REPORT ---
Author Author GENERATED, SYSTEM Organization Unknown Address Unknown Phone Unavailable Care Team Providers Care Quarry Supervisor Dimension Stone Name Role Phone UNASSIGNED DOCTOR , DOCTOR PP [phone] Reason For Visit Chief Complaint MIGRAINE STOMACH [...]
--- OUTSIDE RECORDS SUMMARY | 2016-07-08 17:26 | XMS REPORT ---
Author Author GENERATED, SYSTEM Organization Unknown Address Unknown Phone Unavailable Care Team Providers Care Simulation Engineer Name Role Phone UNASSIGNED DOCTOR , DOCTOR PP [phone] Reason For Visit Chief Complaint PAIN IN [...]
--- OUTSIDE RECORDS SUMMARY | 2016-07-08 17:26 | XMS REPORT ---
Author Author GENERATED, SYSTEM Organization Unknown Address Unknown Phone Unavailable Care Team Providers Care Casino Floor Person Name Role Phone UNASSIGNED DOCTOR , DOCTOR PP [phone] Reason For Visit Chief Complaint FALL LAST [...]
--- OUTSIDE RECORDS SUMMARY | 2016-07-08 17:26 | XMS REPORT ---
Author Author GENERATED, SYSTEM Organization Unknown Address Unknown Phone Unavailable Care Team Providers Care Toolmaker Helper Name Role Phone UNASSIGNED DOCTOR , DOCTOR PP [phone] Reason For Visit Chief Complaint LOWER ABD [...] H (65-99 MG/DL) *GFR EST NON AFR [place] 65 ML/MIN *GFR EST AFR AMER 75 [...] PM* CULTURE URINE (Preliminary Result) Specimen Number: [id number] Sample Collection Date/Time: 04/05/2016 7:50 PM Specimen [...]
--- OUTSIDE RECORDS SUMMARY | 2016-07-08 17:26 | XMS REPORT ---
Author Author GENERATED, SYSTEM Organization Unknown Address Unknown Phone Unavailable Care Team Providers Care Wreath Maker Name Role Phone UNASSIGNED DOCTOR , DOCTOR PP [phone] Reason For Visit Chief Complaint ABD PAIN [...]
--- OUTSIDE RECORDS SUMMARY | 2016-07-08 17:26 | XMS REPORT ---
Author Author GENERATED, SYSTEM Organization Unknown Address Unknown Phone Unavailable Care Team Providers Care Irrigator Head Name Role Phone UNASSIGNED DOCTOR , DOCTOR PP [phone] Reason For Visit Chief Complaint SOB, CHEST [...] H (65-99 MG/DL) *GFR EST NON AFR [place] 69 ML/MIN *GFR EST AFR AMER 80 [...]
--- OUTSIDE RECORDS SUMMARY | 2016-07-08 17:28 | XMS REPORT ---
Author Author GENERATED, SYSTEM Organization Unknown Address Unknown Phone Unavailable Care Team Providers Care Civil Engineering Professional Name Role Phone UNASSIGNED DOCTOR , DOCTOR PP [phone] Reason For Visit Chief Complaint No relevant [...]
--- OUTSIDE RECORDS SUMMARY | 2016-07-08 17:28 | XMS REPORT ---
Author Author GENERATED, SYSTEM Organization Unknown Address Unknown Phone Unavailable Care Team Providers Care Reagent Tender Helper Name Role Phone UNASSIGNED DOCTOR , DOCTOR PP [phone] Reason For Visit Chief Complaint ABDOMINAL PAIN [...] MG/DL) *GFR EST NON AFR [place] 89 ML/MIN *GFRA EST AFR AMER >90 [...] PM* CULTURE URINE (Preliminary Result) Specimen Number: [id number] Sample Collection Date/Time: 09/06/2015 1:27 PM Specimen [...]
--- OUTSIDE RECORDS SUMMARY | 2016-07-08 17:28 | XMS REPORT ---
Author Author GENERATED, SYSTEM Organization Unknown Address Unknown Phone Unavailable Care Team Providers Care Belt Changer Name Role Phone UNASSIGNED DOCTOR , DOCTOR PP [phone] Reason For Visit Chief Complaint DENTAL PAIN [...]
--- OUTSIDE RECORDS SUMMARY | 2016-07-08 17:29 | XMS REPORT ---
Author Author GENERATED, SYSTEM Organization Unknown Address Unknown Phone Unavailable Care Team Providers Care Tool Room Attendant Name Role Phone UNASSIGNED DOCTOR , DOCTOR PP [phone] Reason For Visit Chief Complaint ASTHMA, NAUSEA, [...]
--- OUTSIDE RECORDS SUMMARY | 2016-07-08 17:29 | XMS REPORT ---
Author Author [facility] - Organization Unknown Address Unknown Phone Unavailable [...] (5.0-8.0 ) Protein Negative (Negative ) Specific [place] 1.013 (1.003-1.030 ) Collection Type: Clean Catch Urobilinogen Negative mg/dL (-<1.0 mg/dL) Bacteria Rare Epithelial Cells 2-5 /HPF Mucus Present RBC 2-5 /HPF (0-2 /HPF)
--- OUTSIDE RECORDS SUMMARY | 2016-07-08 17:29 | XMS REPORT ---
Author Author GENERATED, SYSTEM Organization Unknown Address Unknown Phone Unavailable Care Team Providers Care Lead Software Test Engineer Name Role Phone UNASSIGNED DOCTOR , DOCTOR PP [phone] Reason For Visit Chief Complaint ABD PAIN [...] H (65-99 MG/DL) *GFR EST NON AFR [place] 64 ML/MIN *GFR EST AFR AMER 74 [...]
--- OUTSIDE RECORDS SUMMARY | 2016-07-08 17:29 | XMS REPORT ---
Author Author GENERATED, SYSTEM Organization Unknown Address Unknown Phone Unavailable Care Team Providers Care Poultry Farm Laborer Name Role Phone UNASSIGNED DOCTOR , DOCTOR PP [phone] Reason For Visit Chief Complaint UMBILICAL INCISION [...] MG/DL (65-99 MG/DL) *GFR EST NON AFR [place]UR[place] 81 ML/MIN *GFR EST AFR AMER >90 [...] PM* CULTURE WOUND (Preliminary Result) Specimen Number: [id number] Sample Collection Date/Time: 02/01/2016 2:15 PM Specimen Source: Abdomen CULTURE WOUND: Gram-negative bacillus Light growth *GRAM STAIN: Rare WBC's No organisms seen * *GRAM STAIN Specimen Number: [id number] Sample Collection Date/Time: 02/01/2016 2:15 PM Specimen [...]
--- OUTSIDE RECORDS SUMMARY | 2016-07-08 17:29 | XMS REPORT ---
Author Author GENERATED, SYSTEM Organization Unknown Address Unknown Phone Unavailable Care Team Providers Care Specialty Manufacturing Supervisor Name Role Phone UNASSIGNED DOCTOR , DOCTOR PP [phone] Reason For Visit Chief Complaint ABD PAIN [...]
--- OUTSIDE RECORDS SUMMARY | 2016-07-08 17:30 | XMS REPORT ---
Author Author GENERATED, SYSTEM Organization Unknown Address Unknown Phone Unavailable Care Team Providers Care Mass Communications Professor Name Role Phone UNASSIGNED DOCTOR , DOCTOR PP [phone] Reason For Visit Chief Complaint ABDOMINAL PAIN/ [...]
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
[2016-07-08] MEDS ORDERED: BACL20TA PO (17:38)
[2016-07-08 17:45] VITALS: BP 127/72; PULSE 83; RESP 18; TEMP 98.3; O2SAT 100
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
== END 2016-07-08 17:45 | disposition home or self-care (01) ==
LOC: ED 16:35
DX: S23.8XXA Sprain of other specified parts of thorax, initial encounter (principal); Z76.5 Malingerer [conscious simulation]; V49.50XA Passenger injured in collision with unspecified motor vehicles in traffic accident, initial encounter; Y93.89 Activity, other specified; Y92.410 Unspecified street and highway as the place of occurrence of the external cause; Y99.8 Other external cause status
CPT/HCPCS: 96372